=== PATIENT | female | born 1965 | race Caucasian/White ===

== ENCOUNTER 2019-06-01 11:59 | Inpatient (IN) ==
[2019-06-01] MEDS ORDERED: ONDANSETRON 4 MG/2 ML VIAL IV ONE (12:35)
[2019-06-01] MEDS ORDERED: ACETAMINOPHEN 325 MG TABLET PO ONE (12:35)
[2019-06-01] MEDS ORDERED: SODIUM CHLORIDE 0.9% 1,000 ML IV STA ×2 (12:35→12:45)
[2019-06-01] MEDS ORDERED: MORPHINE 4 MG/1 ML VIAL IV ONE (12:35)
[2019-06-01] MEDS ORDERED: diphenhydrAMINE 50 MG/1 ML VIAL IV STA (12:38)
[2019-06-01] MEDS ORDERED: PANTOPRAZOLE 40 MG VIAL IV STA (12:38)
[2019-06-01] MEDS ORDERED: ACETAMINOPHEN 650 MG SUPP RECTAL ONE (12:45)
[2019-06-01] MEDS ORDERED: ACETAMINOPHEN 650 MG SUPP RECTAL STA (12:45)
[2019-06-01 12:54] LABS: Eosinophils % 2.7 % (0.00-10.9); Hematocrit 44.8 VOL% (35.7-47.0); Hemoglobin 14.7 GM/DL (12.0-16.0); Immature Granulocytes % 2.7 %; Immature Granulocytes Absolute 0.01 #; Lymphocytes # 0.3 10*3/uL (1.4-4.0); Lymphocytes % 86.5 % (21.3-54.2); Mean Corpuscular HGB Conc 32.8 GM/DL (32-36); Mean Corpuscular Volume 85.5 FL (87-102); Mean Platelet Volume 10.7 FL (9.6-12.0); Monocytes % 2.7 % (1.7-12.7); Neutrophils % 5.4 % (38.7-73.9); Platelet Count 69 T/CUMM (130-400); Red Blood Count 5.24 MC/CUMM (3.8-5.5); Red Cell Distribution Width 16.7 % (9.3-17.3)
[2019-06-01 13:03] LABS: White Blood Count 0.4 T/CUMM (4-12)
[2019-06-01] MEDS ORDERED: CEFEPIME 1,000 MG in SODIUM CHLORIDE 0.9% 100 ML IV STA (13:18)
[2019-06-01] MEDS ORDERED: VANCOMYCIN INJ 1,000 MG in SODIUM CHLORIDE 0.9% 250 ML IV STA (13:18)
[2019-06-01 13:23] LABS: Alanine Aminotransferase 95 U/L (13-56); Albumin 2.3 G/DL (3.4-5.0); Alkaline Phosphatase 375 U/L (45-117); Aspartate Amino Transferase 201 U/L (0-37); Blood Urea Nitrogen 24 MG/DL (7-18); Calcium 7.6 MG/DL (8.5-10.1); Estimated Glom Filtration Rate 62 ML/MIN; Glucose 188 MG/DL (74-106); Osmolality,Calculated 278.1 MOS/KG (273-304); Troponin I < 0.015 NG/ML (0.00-0.045)
[2019-06-01] MEDS ORDERED: SODIUM CHLORIDE 0.9% 500 ML IV STA (13:40)
[2019-06-01 13:56] LABS: Apearance,Urine CLEAR (Clear); Bacteria,Urine Occasional /HPF (Few); Bilirubin,Urine Small mg/dL (Negative); Blood, Urine Small mg/dL (Negative); Glucose,Urine (UA) 50 mg/dL (Negative); Ketones,Urine Negative (Negative); Mucus,Urine Occasional /LPF (Occasional); Nitrite,Urine Negative (Negative); Protein,Urine 30 MG/DL; RBC,Urine 12 /HPF (0-4); Urine Color Amber (Yellow); Urine Specific Gravity 1.025 (1.001-1.035); WBC,Urine 2 /HPF (0-6)
[2019-06-01 14:09] LABS: Eosinophils 4 % (0-10); Hypochromasia 1+; Lymphocytes 87 % (20-55); Microcytosis 1+; Segmented Neutrophils 9 % (50-85); Total Cells Counted 100
[2019-06-01 14:10] LABS: Platelet Estimate Decreased; Reactive Lymphocytes Slight
[2019-06-01] MEDS: SODIUM CHLORIDE 0.9% 1,000 ML IV SCH (16:05)
[2019-06-01] MEDS: MYLANTA/LIDO VISC 2:1 300 ML BOTTLE SWISH/SWAL SCH ×2 (16:49→21:57)
[2019-06-01] MEDS: NYSTATIN 500,000 UNIT/5 ML UDCUP SWISH/SWAL SCH ×2 (16:52→21:47)
[2019-06-01] MEDS: FILGRASTIM-SNDZ 480 MCG/0.8 ML SYRINGE SUBCUT SCH (16:52)
[2019-06-01] MEDS: ALBUTEROL/IPRATROPIUM 3 ML NEB RESP TX SCH (20:06)
[2019-06-01] MEDS: ONDANSETRON 4 MG/2 ML VIAL IV PRN (20:56)
[2019-06-01] MEDS: ZOLPIDEM 5 MG TABLET PO SCH (21:47)
[2019-06-01] MEDS: ENOXAPARIN 40 MG/0.4 ML SYRINGE SUBCUT SCH (21:47)
[2019-06-01] MEDS: ACETAMINOPHEN 325 MG TABLET PO PRN (21:47)
[2019-06-01] MEDS: CEFEPIME 1,000 MG in SODIUM CHLORIDE 0.9% 100 ML IV SCH (22:26)
[2019-06-02] MEDS: ONDANSETRON 4 MG/2 ML VIAL IV PRN ×3 (00:45→20:28)
[2019-06-02] MEDS: VANCOMYCIN INJ 1,000 MG in SODIUM CHLORIDE 0.9% 250 ML IV SCH ×2 (00:49→14:42)
[2019-06-02] MEDS: SODIUM CHLORIDE 0.9% 1,000 ML IV SCH ×2 (00:50→12:06)
[2019-06-02] MEDS: ALBUTEROL/IPRATROPIUM 3 ML NEB RESP TX SCH ×4 (01:05→20:21)
[2019-06-02] MEDS: CEFEPIME 1,000 MG in SODIUM CHLORIDE 0.9% 100 ML IV SCH ×2 (04:59→12:06)
[2019-06-02 06:13] LABS: Eosinophils % 4.5 % (0.00-10.9); Hematocrit 35.8 VOL% (35.7-47.0); Hemoglobin 11.9 GM/DL (12.0-16.0); Lymphocytes # 0.2 10*3/uL (1.4-4.0); Lymphocytes % 86.4 % (21.3-54.2); Mean Corpuscular HGB Conc 33.2 GM/DL (32-36); Mean Corpuscular Volume 84.8 FL (87-102); Mean Platelet Volume 10.9 FL (9.6-12.0); Monocytes % 4.5 % (1.7-12.7); Neutrophils % 4.6 % (38.7-73.9); Red Blood Count 4.22 MC/CUMM (3.8-5.5); Red Cell Distribution Width 16.7 % (9.3-17.3)
[2019-06-02 06:17] LABS: White Blood Count 0.2 T/CUMM (4-12)
[2019-06-02 06:18] LABS: Platelet Count 40 T/CUMM (130-400)
[2019-06-02 06:38] LABS: Albumin 1.9 G/DL (3.4-5.0); Bilirubin,Total 3.7 MG/DL (0.2-1.0); Calcium 6.8 MG/DL (8.5-10.1); Osmolality,Calculated 282.5 MOS/KG (273-304); Total Protein 5.3 G/DL (6.4-8.3)
[2019-06-02 07:33] LABS: Lymphocytes 100 % (20-55); Microcytosis 1+; Ovalocytes Slight; Platelet Estimate Decreased; Total Cells Counted 100
[2019-06-02] MEDS: MYLANTA/LIDO VISC 2:1 300 ML BOTTLE SWISH/SWAL SCH ×4 (09:57→21:58)
[2019-06-02] MEDS: FILGRASTIM-SNDZ 480 MCG/0.8 ML SYRINGE SUBCUT SCH (09:57)
[2019-06-02] MEDS: NYSTATIN 500,000 UNIT/5 ML UDCUP SWISH/SWAL SCH ×4 (09:57→21:58)
[2019-06-02] MEDS: LACTATED RINGERS 1,000 ML IV SCH ×2 (09:58→20:26)
[2019-06-02] MEDS ORDERED: chlorproMAZINE 25 MG TABLET PO PRN (10:18)
[2019-06-02] MEDS ORDERED: traMADol 50 MG TABLET PO PRN (10:18)
[2019-06-02] MEDS ORDERED: chlorproMAZINE INJ 25 MG in SODIUM CHLORIDE 0.9% 100 ML IV PRN (10:18)
[2019-06-02] MEDS ORDERED: MYLANTA/LIDO VISC 2:1 300 ML BOTTLE SWISH/SPIT PRN (10:18)
[2019-06-02] MEDS ORDERED: guaiFENesin 200 MG/10 ML UDCUP PO PRN (10:18)
[2019-06-02] MEDS ORDERED: MAGNESIUM HYDROXIDE SUSP 30 ML UDCUP PO PRN (10:18)
[2019-06-02] MEDS ORDERED: MYLANTA/LIDO VISC 2:1 300 ML BOTTLE SWISH/SWAL PRN (10:18)
[2019-06-02] MEDS ORDERED: BENZTROPINE 2 MG/2 ML AMP IV PRN (10:18)
[2019-06-02] MEDS ORDERED: LACTULOSE 20 GM/30 ML UDCUP PO PRN (10:18)
[2019-06-02] MEDS ORDERED: chlorproMAZINE INJ 50 MG in SODIUM CHLORIDE 0.9% 100 ML IV PRN (10:18)
[2019-06-02] MEDS ORDERED: ALUMINUM/MAGNES/SIMETH MAX STR 30 ML UDCUP PO PRN (10:18)
[2019-06-02] MEDS: PROMETHAZINE INJ 25 MG in SODIUM CHLORIDE 0.9% 50 ML IV PRN (11:45)
[2019-06-02] MEDS ORDERED: CHOLESTYRAMINE 4 GM PACK PO SCH (11:57)
[2019-06-02] MEDS: LOPERAMIDE 2 MG CAPSULE PO PRN ×2 (12:47→20:27)
[2019-06-02] MEDS: MEROPENEM 500 MG in SODIUM CHLORIDE 0.9% 100 ML IV SCH ×3 (13:42→23:30)
[2019-06-02] MEDS: ACETAMINOPHEN 325 MG TABLET PO PRN ×2 (14:39→20:34)
[2019-06-02] MEDS ORDERED: PROMETHAZINE 25 MG/1 ML VIAL ONE (19:28)
[2019-06-02] MEDS: PROMETHAZINE 25 MG/1 ML VIAL IV PRN (19:36)
[2019-06-02] MEDS: ZOLPIDEM 5 MG TABLET PO SCH (20:27)
[2019-06-02] MEDS: ENOXAPARIN 40 MG/0.4 ML SYRINGE SUBCUT SCH (20:35)
[2019-06-02] MEDS: ALPRAZolam 0.25 MG TABLET PO PRN (22:21)
[2019-06-03] MEDS: PROMETHAZINE 25 MG/1 ML VIAL IV PRN ×2 (00:09→05:17)
[2019-06-03] MEDS: VANCOMYCIN INJ 1,000 MG in SODIUM CHLORIDE 0.9% 250 ML IV SCH ×2 (00:13→15:57)
[2019-06-03] MEDS: ALBUTEROL/IPRATROPIUM 3 ML NEB RESP TX SCH ×4 (00:55→20:38)
[2019-06-03] MEDS: ACETAMINOPHEN 325 MG TABLET PO PRN ×2 (01:34→05:16)
[2019-06-03] MEDS: LACTATED RINGERS 1,000 ML IV SCH ×2 (01:38→08:58)
[2019-06-03 03:57] LABS: Eosinophils % 3.1 % (0.00-10.9); Hematocrit 31.4 VOL% (35.7-47.0); Hemoglobin 10.9 GM/DL (12.0-16.0); Lymphocytes # 0.3 10*3/uL (1.4-4.0); Lymphocytes % 90.6 % (21.3-54.2); Mean Corpuscular HGB Conc 34.7 GM/DL (32-36); Mean Platelet Volume 10.6 FL (9.6-12.0); Monocytes % 3.1 % (1.7-12.7); Neutrophils % 3.2 % (38.7-73.9); Red Blood Count 3.83 MC/CUMM (3.8-5.5); Red Cell Distribution Width 16.4 % (9.3-17.3)
[2019-06-03 04:12] LABS: Platelet Count 29 T/CUMM (130-400)
[2019-06-03 04:13] LABS: White Blood Count 0.3 T/CUMM (4-12)
[2019-06-03 04:16] LABS: Hypochromasia 1+; Lymphocytes 100 % (20-55); Platelet Estimate Decreased; Total Cells Counted 100
[2019-06-03 04:17] LABS: Atypical Lymphocytes Few; Microcytosis 1+
[2019-06-03 04:29] LABS: Albumin 1.6 G/DL (3.4-5.0); Bilirubin,Total 5.2 MG/DL (0.2-1.0); Osmolality,Calculated 279.4 MOS/KG (273-304); Total Protein 4.9 G/DL (6.4-8.3)
[2019-06-03] MEDS: MEROPENEM 500 MG in SODIUM CHLORIDE 0.9% 100 ML IV SCH ×4 (05:16→21:33)
[2019-06-03] MEDS: LOPERAMIDE 2 MG CAPSULE PO PRN (05:17)
[2019-06-03] MEDS ORDERED: MYLANTA/LIDO VISC/DIPH 300 ML BOTTLE SWISH/SPIT PRN (08:34)
[2019-06-03] MEDS ORDERED: MORPHINE 4 MG/1 ML VIAL IV PRN (08:55)
[2019-06-03] MEDS: NYSTATIN 500,000 UNIT/5 ML UDCUP SWISH/SWAL SCH (09:03)
[2019-06-03] MEDS: PANTOPRAZOLE 40 MG VIAL IV SCH (09:46)
[2019-06-03] MEDS: MORPHINE 4 MG/1 ML VIAL IV PRN (09:46)
[2019-06-03] MEDS: FILGRASTIM-SNDZ 480 MCG/0.8 ML SYRINGE SUBCUT SCH (09:46)
[2019-06-03 09:48] LABS: INR 1.3; PT Patient Result 13.9 SECS (9.6-12.2)
[2019-06-03] MEDS: PROMETHAZINE INJ 25 MG in SODIUM CHLORIDE 0.9% 50 ML IV PRN ×2 (09:48→20:14)
[2019-06-03] MEDS: MYLANTA/LIDO VISC 2:1 300 ML BOTTLE SWISH/SWAL SCH ×4 (09:50→22:15)
[2019-06-03] MEDS: SODIUM CHLORIDE 0.45% 1,000 ML IV SCH ×2 (09:50→21:32)
[2019-06-03 09:56] LABS: Partial Thromboplastin Time 43.9 SECS (20.8-36.0)
[2019-06-03] MEDS: AZTREONAM 2,000 MG in SYRINGE 1 EACH IV SCH ×3 (10:53→21:22)
[2019-06-03] MEDS ORDERED: POTASSIUM CHLORIDE 20 MEQ TABLET PO PRN (10:59)
[2019-06-03] MEDS ORDERED: POTASSIUM CHLORIDE RIDER 20 MEQ in PREMIX 1 EACH IV PRN (13:29)
[2019-06-03] MEDS: ACETAMINOPHEN 650 MG SUPP RECTAL PRN (16:02)
[2019-06-03] MEDS: POTASSIUM CHLORIDE RIDER 20 MEQ in PREMIX 1 EACH IV PRN (17:15)
[2019-06-03 17:35] LABS: Hematocrit 33.1 VOL% (35.7-47.0); Hemoglobin 11.2 GM/DL (12.0-16.0); Lymphocytes # 0.2 10*3/uL (1.4-4.0); Lymphocytes % 72.7 % (21.3-54.2); Mean Corpuscular HGB Conc 33.8 GM/DL (32-36); Mean Corpuscular Volume 83.4 FL (87-102); Monocytes % 21.2 % (1.7-12.7); Neutrophils % 3.1 % (38.7-73.9); Red Blood Count 3.97 MC/CUMM (3.8-5.5); Red Cell Distribution Width 16.5 % (9.3-17.3)
[2019-06-03 17:38] LABS: White Blood Count 0.3 T/CUMM (4-12)
[2019-06-03 17:39] LABS: Platelet Count 32 T/CUMM (130-400)
[2019-06-03 18:57] LABS: Acanthocytes 1+; Anisocytosis 2+; Hypochromasia 1+; Ovalocytes Slight
[2019-06-03] MEDS: ZOLPIDEM 5 MG TABLET PO SCH (22:15)
[2019-06-04] MEDS: ALBUTEROL/IPRATROPIUM 3 ML NEB RESP TX SCH ×4 (00:57→19:39)
[2019-06-04] MEDS: VANCOMYCIN INJ 1,000 MG in SODIUM CHLORIDE 0.9% 250 ML IV SCH (01:17)
[2019-06-04] MEDS: ACETAMINOPHEN 650 MG SUPP RECTAL PRN (01:23)
[2019-06-04] MEDS: MEROPENEM 500 MG in SODIUM CHLORIDE 0.9% 100 ML IV SCH ×4 (03:08→20:42)
[2019-06-04] MEDS: AZTREONAM 2,000 MG in SYRINGE 1 EACH IV SCH ×2 (03:40→10:15)
[2019-06-04 05:16] LABS: Hematocrit 32.5 VOL% (35.7-47.0); Hemoglobin 10.8 GM/DL (12.0-16.0); Immature Granulocytes % 3.9 %; Immature Granulocytes Absolute 0.02 #; Lymphocytes # 0.3 10*3/uL (1.4-4.0); Lymphocytes % 62.7 % (21.3-54.2); Mean Corpuscular HGB Conc 33.2 GM/DL (32-36); Mean Corpuscular Volume 83.3 FL (87-102); Mean Platelet Volume 11.2 FL (9.6-12.0); Monocytes % 29.4 % (1.7-12.7); Red Cell Distribution Width 16.8 % (9.3-17.3)
[2019-06-04 05:38] LABS: Albumin 1.5 G/DL (3.4-5.0); Calcium 7.4 MG/DL (8.5-10.1); Osmolality,Calculated 280.4 MOS/KG (273-304); Total Protein 5.1 G/DL (6.4-8.3)
[2019-06-04 05:47] LABS: Platelet Count 34 T/CUMM (130-400); White Blood Count 0.5 T/CUMM (4-12)
[2019-06-04 05:55] LABS: Hypochromasia 1+; Lymphocytes 70 % (20-55); Platelet Estimate Decreased; Total Cells Counted 100
[2019-06-04] MEDS: SODIUM CHLORIDE 0.45% 1,000 ML IV SCH ×3 (06:42→20:41)
[2019-06-04] MEDS: POTASSIUM CHLORIDE RIDER 20 MEQ in PREMIX 1 EACH IV PRN ×2 (07:46→17:06)
[2019-06-04] MEDS ORDERED: LACTATED RINGERS 1,000 ML IV SCH (08:00)
[2019-06-04] MEDS: PROMETHAZINE INJ 25 MG in SODIUM CHLORIDE 0.9% 50 ML IV PRN (08:08)
[2019-06-04] MEDS: FILGRASTIM-SNDZ 480 MCG/0.8 ML SYRINGE SUBCUT SCH (08:10)
[2019-06-04] MEDS: PANTOPRAZOLE 40 MG VIAL IV SCH (08:10)
[2019-06-04] MEDS: MYLANTA/LIDO VISC 2:1 300 ML BOTTLE SWISH/SWAL SCH ×4 (08:33→20:46)
[2019-06-04] MEDS ORDERED: TOBRAMYCIN INJ 320 MG in SODIUM CHLORIDE 0.9% 100 ML IV ONE (10:30)
[2019-06-04] MEDS: FLUCONAZOLE INJ 200 MG in PREMIX 1 EACH IV SCH (10:33)
[2019-06-04] MEDS ORDERED: ACETAMINOPHEN 325 MG/10.15 ML UDCUP PO PRN (16:16)
[2019-06-04] MEDS: IBUPROFEN 100 MG/5 ML UDCUP PO PRN (16:59)
[2019-06-04] MEDS: ALPRAZolam 0.25 MG TABLET PO PRN (20:42)
[2019-06-04] MEDS: ZOLPIDEM 5 MG TABLET PO SCH (20:42)
[2019-06-05] MEDS: ALBUTEROL/IPRATROPIUM 3 ML NEB RESP TX SCH ×5 (00:07→21:20)
[2019-06-05] MEDS: SODIUM CHLORIDE 0.45% 1,000 ML IV SCH ×2 (00:48→09:50)
[2019-06-05] MEDS: MEROPENEM 500 MG in SODIUM CHLORIDE 0.9% 100 ML IV SCH ×4 (01:39→20:06)
[2019-06-05] MEDS: LOPERAMIDE 2 MG CAPSULE PO PRN (01:43)
[2019-06-05 05:45] LABS: Basophils % 1.6 % (0.0-0.8); Eosinophils % 0.5 % (0.00-10.9); Hematocrit 33.3 VOL% (35.7-47.0); Hemoglobin 11.1 GM/DL (12.0-16.0); Immature Granulocytes % 10.9 %; Immature Granulocytes Absolute 0.21 #; Lymphocytes # 0.7 10*3/uL (1.4-4.0); Lymphocytes % 36.5 % (21.3-54.2); Mean Corpuscular HGB Conc 33.3 GM/DL (32-36); Mean Corpuscular Volume 83.3 FL (87-102); Mean Platelet Volume 12.1 FL (9.6-12.0); NRBC # 0.08 10*3/uL; Neutrophils % 37.5 % (38.7-73.9); Platelet Count 43 T/CUMM (130-400); Red Cell Distribution Width 17.2 % (9.3-17.3); White Blood Count 1.9 T/CUMM (4-12)
[2019-06-05 06:08] LABS: Albumin 1.3 G/DL (3.4-5.0); Bilirubin,Total 5.4 MG/DL (0.2-1.0); Calcium 7.4 MG/DL (8.5-10.1); Osmolality,Calculated 278.5 MOS/KG (273-304); Total Protein 4.8 G/DL (6.4-8.3)
[2019-06-05 06:16] LABS: Hypochromasia 1+; Lymphocytes 34 % (20-55); Metamyelocytes 4 %; Microcytosis 1+; Nucleated Red Blood Cells 2 (0-5); Platelet Estimate Decreased; Promyelocytes 2 %; Segmented Neutrophils 40 % (50-85); Total Cells Counted 100
[2019-06-05 06:17] LABS: Atypical Lymphocytes Few
[2019-06-05] MEDS: MYLANTA/LIDO VISC 2:1 300 ML BOTTLE SWISH/SWAL SCH ×4 (09:47→21:12)
[2019-06-05] MEDS: PANTOPRAZOLE 40 MG VIAL IV SCH ×2 (09:52→21:04)
[2019-06-05] MEDS: FILGRASTIM-SNDZ 480 MCG/0.8 ML SYRINGE SUBCUT SCH (09:53)
[2019-06-05] MEDS ORDERED: TOBRAMYCIN INJ 320 MG in SODIUM CHLORIDE 0.9% 100 ML IV ONE (10:00)
[2019-06-05] MEDS: FLUCONAZOLE INJ 200 MG in PREMIX 1 EACH IV SCH (11:16)
[2019-06-05] MEDS ORDERED: ALUM/MAG/SIMETH/LIDO VISC 1:1 30 ML BOTTLE PO ONE (11:51)
[2019-06-05] MEDS ORDERED: LIDOCAINE 4% CREAM 5 GM TUBE TOP PRN (11:59)
[2019-06-05] MEDS: ONDANSETRON 4 MG/2 ML VIAL IV PRN (12:30)
[2019-06-05] MEDS: PROMETHAZINE INJ 25 MG in SODIUM CHLORIDE 0.9% 50 ML IV PRN ×2 (12:45→19:58)
[2019-06-05] MEDS: POTASSIUM CHLORIDE RIDER 20 MEQ in PREMIX 1 EACH IV PRN (18:58)
[2019-06-05] MEDS: ZOLPIDEM 5 MG TABLET PO SCH (21:03)
[2019-06-06] MEDS: ONDANSETRON 4 MG/2 ML VIAL IV PRN (00:43)
[2019-06-06] MEDS: ALBUTEROL/IPRATROPIUM 3 ML NEB RESP TX SCH ×4 (00:55→19:26)
[2019-06-06] MEDS: SODIUM CHLORIDE 0.45% 1,000 ML IV SCH ×2 (02:50→21:09)
[2019-06-06] MEDS: MEROPENEM 500 MG in SODIUM CHLORIDE 0.9% 100 ML IV SCH ×4 (02:50→21:05)
[2019-06-06] MEDS: ACETAMINOPHEN 325 MG TABLET PO PRN (04:45)
[2019-06-06 05:12] LABS: Basophils % 0.1 % (0.0-0.8); Eosinophils % 0.4 % (0.00-10.9); Hematocrit 33.1 VOL% (35.7-47.0); Hemoglobin 11.2 GM/DL (12.0-16.0); Immature Granulocytes % 12.9 %; Immature Granulocytes Absolute 1.05 #; Lymphocytes # 1.2 10*3/uL (1.4-4.0); Lymphocytes % 14.7 % (21.3-54.2); Mean Corpuscular HGB Conc 33.8 GM/DL (32-36); Mean Corpuscular Volume 82.5 FL (87-102); Monocytes % 9.3 % (1.7-12.7); Neutrophils % 62.6 % (38.7-73.9); Red Blood Count 4.01 MC/CUMM (3.8-5.5); Red Cell Distribution Width 17.1 % (9.3-17.3); White Blood Count 8.2 T/CUMM (4-12)
[2019-06-06 05:24] LABS: Platelet Count 54 T/CUMM (130-400)
[2019-06-06 05:40] LABS: Band Neutrophils 1 % (0-10); Hypochromasia 1+; Lymphocytes 17 % (20-55); Metamyelocytes 2 %; Microcytosis 1+; Nucleated Red Blood Cells 9 (0-5); Promyelocytes 1 %; Segmented Neutrophils 68 % (50-85); Target Cells Slight; Total Cells Counted 100
[2019-06-06 05:41] LABS: Atypical Lymphocytes Few; Platelet Estimate Decreased
[2019-06-06 05:43] LABS: Albumin 1.4 G/DL (3.4-5.0); Bilirubin,Total 5.8 MG/DL (0.2-1.0); Calcium 7.8 MG/DL (8.5-10.1); Osmolality,Calculated 274.7 MOS/KG (273-304); Total Protein 4.8 G/DL (6.4-8.3)
[2019-06-06] MEDS: POTASSIUM CHLORIDE RIDER 20 MEQ in PREMIX 1 EACH IV PRN (06:47)
[2019-06-06] MEDS: MYLANTA/LIDO VISC 2:1 300 ML BOTTLE SWISH/SWAL SCH ×4 (08:08→22:44)
[2019-06-06] MEDS: PANTOPRAZOLE 40 MG VIAL IV SCH ×2 (09:14→22:44)
[2019-06-06] MEDS: POTASSIUM CHLORIDE RIDER 10 MEQ in PREMIX 1 EACH IV PRN (11:20)
[2019-06-06] MEDS: FLUCONAZOLE INJ 200 MG in PREMIX 1 EACH IV SCH (11:21)
[2019-06-06] MEDS: FILGRASTIM-SNDZ 480 MCG/0.8 ML SYRINGE SUBCUT SCH (11:23)
[2019-06-06] MEDS: IBUPROFEN 100 MG/5 ML UDCUP PO PRN (16:44)
[2019-06-06] MEDS: ZOLPIDEM 5 MG TABLET PO SCH (21:04)
[2019-06-07] MEDS: SODIUM CHLORIDE 0.45% 1,000 ML IV SCH (00:26)
[2019-06-07] MEDS: ALBUTEROL/IPRATROPIUM 3 ML NEB RESP TX SCH ×5 (01:56→20:03)
[2019-06-07] MEDS: MEROPENEM 500 MG in SODIUM CHLORIDE 0.9% 100 ML IV SCH ×3 (02:48→13:35)
[2019-06-07] MEDS: ALPRAZolam 0.25 MG TABLET PO PRN (03:10)
[2019-06-07] MEDS: ONDANSETRON 4 MG/2 ML VIAL IV PRN ×2 (03:18→13:35)
[2019-06-07 04:11] LABS: Basophils % 0.1 % (0.0-0.8); Eosinophils % 0.2 % (0.00-10.9); Hemoglobin 10.8 GM/DL (12.0-16.0); Immature Granulocytes % 15.8 %; Immature Granulocytes Absolute 1.52 #; Lymphocytes # 1.2 10*3/uL (1.4-4.0); Lymphocytes % 11.9 % (21.3-54.2); Mean Corpuscular HGB Conc 34.8 GM/DL (32-36); Mean Corpuscular Volume 80.5 FL (87-102); Mean Platelet Volume 11.9 FL (9.6-12.0); Monocytes % 10.1 % (1.7-12.7); NRBC # 0.68 10*3/uL; Neutrophils % 61.9 % (38.7-73.9); Platelet Count 45 T/CUMM (130-400); Red Blood Count 3.85 MC/CUMM (3.8-5.5); Red Cell Distribution Width 17.4 % (9.3-17.3); White Blood Count 9.6 T/CUMM (4-12)
[2019-06-07 04:27] LABS: Calcium 7.2 MG/DL (8.5-10.1); Osmolality,Calculated 276.5 MOS/KG (273-304)
[2019-06-07 04:46] LABS: Anisocytosis 1+; Band Neutrophils 1 % (0-10); Lymphocytes 14 % (20-55); Metamyelocytes 1 %; Myelocytes 2 %; Nucleated Red Blood Cells 5 (0-5); Segmented Neutrophils 71 % (50-85); Total Cells Counted 100
[2019-06-07 04:47] LABS: Atypical Lymphocytes Few; Macrocytosis 1+; Microcytosis 1+; Platelet Estimate Decreased; Polychromasia 1+; Smudge Cells Few
[2019-06-07] MEDS ORDERED: THROMBIN 5000 UNIT TOP ONE (10:00)
[2019-06-07] MEDS ORDERED: THROMBIN TOPICAL (RECOMBINANT) 5,000 UNIT VIAL TOP ONE (10:30)
[2019-06-07] MEDS: PANTOPRAZOLE 40 MG VIAL IV SCH ×2 (10:39→22:28)
[2019-06-07] MEDS: MYLANTA/LIDO VISC 2:1 300 ML BOTTLE SWISH/SWAL SCH ×4 (10:40→21:48)
[2019-06-07] MEDS: FLUCONAZOLE INJ 200 MG in PREMIX 1 EACH IV SCH (12:31)
[2019-06-07] MEDS ORDERED: LORazepam 2 MG/1 ML VIAL IV ONE (13:12)
[2019-06-07] MEDS ORDERED: LORazepam 2 MG/1 ML VIAL IV SCH (13:30)
[2019-06-07] MEDS ORDERED: LEVOFLOXACIN INJ 750 MG in PREMIX 1 EACH IV SCH (16:00)
[2019-06-07] MEDS ORDERED: ALBUMIN 25% 50 GM in PREMIX 1 EACH IV ONE (17:30)
[2019-06-07] MEDS ORDERED: FUROSEMIDE 40 MG/4 ML VIAL IV ONE (19:30)
[2019-06-07] MEDS: ZOLPIDEM 5 MG TABLET PO SCH (21:43)
[2019-06-07] MEDS: PROMETHAZINE INJ 25 MG in SODIUM CHLORIDE 0.9% 50 ML IV PRN (22:29)
[2019-06-07] MEDS: VANCOMYCIN INJ 1,250 MG in SODIUM CHLORIDE 0.9% 250 ML IV SCH (23:17)
[2019-06-07] MEDS: ACETAMINOPHEN 650 MG SUPP RECTAL PRN (23:18)
[2019-06-08] MEDS: SODIUM CHLORIDE 0.45% 1,000 ML IV SCH ×2 (00:29→10:58)
[2019-06-08] MEDS: MEROPENEM 500 MG in SODIUM CHLORIDE 0.9% 100 ML IV SCH ×4 (00:29→18:18)
[2019-06-08] MEDS: ALBUTEROL/IPRATROPIUM 3 ML NEB RESP TX SCH ×4 (01:30→19:32)
[2019-06-08] MEDS: ALPRAZolam 0.25 MG TABLET PO PRN (03:35)
[2019-06-08 05:31] LABS: Basophils % 0.1 % (0.0-0.8); Eosinophils % 0.1 % (0.00-10.9); Hematocrit 27.4 VOL% (35.7-47.0); Hemoglobin 9.6 GM/DL (12.0-16.0); Immature Granulocytes % 17.7 %; Immature Granulocytes Absolute 1.41 #; Lymphocytes # 1.3 10*3/uL (1.4-4.0); Lymphocytes % 16.9 % (21.3-54.2); Mean Corpuscular Volume 79.7 FL (87-102); Monocytes % 8.8 % (1.7-12.7); NRBC # 0.63 10*3/uL; Neutrophils % 56.4 % (38.7-73.9); Red Blood Count 3.44 MC/CUMM (3.8-5.5); Red Cell Distribution Width 17.2 % (9.3-17.3)
[2019-06-08 05:33] LABS: Platelet Count 34 T/CUMM (130-400)
[2019-06-08 06:09] LABS: Albumin 2.1 G/DL (3.4-5.0); Bilirubin,Total 6.9 MG/DL (0.2-1.0); Calcium 7.5 MG/DL (8.5-10.1); Osmolality,Calculated 275.7 MOS/KG (273-304); Total Protein 4.9 G/DL (6.4-8.3)
[2019-06-08 06:26] LABS: Band Neutrophils 16 % (0-10); Lymphocytes 19 % (20-55); Metamyelocytes 2 %; Myelocytes 3 %; Nucleated Red Blood Cells 8 (0-5); Platelet Estimate Decreased; Segmented Neutrophils 55 % (50-85); Total Cells Counted 100
[2019-06-08 06:27] LABS: Anisocytosis 1+; Poikilocytosis Slight; Smudge Cells 1+; Target Cells Few
[2019-06-08] MEDS: POTASSIUM CHLORIDE RIDER 10 MEQ in PREMIX 1 EACH IV PRN (06:29)
[2019-06-08] MEDS: PANTOPRAZOLE 40 MG VIAL IV SCH (10:58)
[2019-06-08] MEDS: MYLANTA/LIDO VISC 2:1 300 ML BOTTLE SWISH/SWAL SCH ×4 (10:58→21:51)
[2019-06-08] MEDS: FLUCONAZOLE INJ 200 MG in PREMIX 1 EACH IV SCH (11:12)
[2019-06-08 11:26] LABS: INR 1.8; PT Patient Result 19.3 SECS (9.6-12.2)
[2019-06-08 11:32] LABS: Partial Thromboplastin Time 40.8 SECS (20.8-36.0)
[2019-06-08] MEDS: VANCOMYCIN INJ 1,250 MG in SODIUM CHLORIDE 0.9% 250 ML IV SCH (12:00)
[2019-06-08] MEDS: MICAFUNGIN 100 MG in SODIUM CHLORIDE 0.9% 100 ML IV SCH (12:07)
[2019-06-08] MEDS ORDERED: SODIUM CHLORIDE 0.9% 1,000 ML IV PRN (12:11)
[2019-06-08] MEDS: LORazepam 2 MG/1 ML VIAL IV PRN (12:16)
[2019-06-08 12:38] LABS: Hepatitis B Core IgM Quant 0.15 Index; Hepatitis B Surface Ag Result Negative (Negative); Hepatitis C Virus Ab Quant < 0.02 Index; Hepatitis C Virus Ab Result Negative (Negative)
[2019-06-08] MEDS ORDERED: ALBUMIN 25% 25 GM in PREMIX 1 EACH IV ONE (14:48)
[2019-06-08] MEDS ORDERED: FUROSEMIDE 40 MG/4 ML VIAL IV ONE (15:00)
[2019-06-08] MEDS: MORPHINE 4 MG/1 ML VIAL IV PRN (15:16)
[2019-06-08] MEDS: ONDANSETRON 4 MG/2 ML VIAL IV PRN (15:21)
[2019-06-08] MEDS: POTASSIUM CHLORIDE RIDER 20 MEQ in PREMIX 1 EACH IV SCH ×2 (19:46→22:00)
[2019-06-08] MEDS ORDERED: THROMBIN TOPICAL (RECOMBINANT) 5,000 UNIT VIAL TOP ONE (20:30)
[2019-06-08] MEDS: ACETAMINOPHEN 650 MG SUPP RECTAL PRN (20:34)
[2019-06-08] MEDS: ZOLPIDEM 5 MG TABLET PO SCH (22:45)
[2019-06-09] MEDS: NYSTATIN POWDER 15 GM BOTTLE TOP SCH ×4 (00:02→20:25)
[2019-06-09] MEDS: LEVOFLOXACIN INJ 750 MG in PREMIX 1 EACH IV SCH ×2 (00:02→22:17)
[2019-06-09] MEDS: SODIUM CHLORIDE 0.45% 1,000 ML IV SCH ×2 (01:15→22:17)
[2019-06-09] MEDS: MEROPENEM 500 MG in SODIUM CHLORIDE 0.9% 100 ML IV SCH ×5 (01:30→23:51)
[2019-06-09] MEDS: TEMAZEPAM 7.5 MG CAPSULE PO PRN (01:30)
[2019-06-09] MEDS: VANCOMYCIN INJ 1,250 MG in SODIUM CHLORIDE 0.9% 250 ML IV SCH ×2 (01:31→13:25)
[2019-06-09 04:06] LABS: Basophils # 0.1 10*3/uL (0.0-0.2); Basophils % 1.2 % (0.0-0.8); Hemoglobin 9.2 GM/DL (12.0-16.0); Immature Granulocytes % 18.8 %; Immature Granulocytes Absolute 1.36 #; Lymphocytes # 1.5 10*3/uL (1.4-4.0); Lymphocytes % 21.2 % (21.3-54.2); Mean Corpuscular HGB Conc 32.9 GM/DL (32-36); Mean Corpuscular Volume 83.6 FL (87-102); Monocytes % 10.5 % (1.7-12.7); Neutrophils % 48.3 % (38.7-73.9); Red Blood Count 3.35 MC/CUMM (3.8-5.5); Red Cell Distribution Width 17.5 % (9.3-17.3); White Blood Count 7.2 T/CUMM (4-12)
[2019-06-09 04:10] LABS: Platelet Count 30 T/CUMM (130-400)
[2019-06-09] MEDS: ALPRAZolam 0.25 MG TABLET PO PRN (04:22)
[2019-06-09 04:27] LABS: Bilirubin,Total 7.9 MG/DL (0.2-1.0); Calcium 7.3 MG/DL (8.5-10.1); Osmolality,Calculated 274.7 MOS/KG (273-304); Total Protein 4.9 G/DL (6.4-8.3)
[2019-06-09] MEDS: ACETAMINOPHEN 650 MG SUPP RECTAL PRN ×2 (04:34→18:38)
[2019-06-09] MEDS: POTASSIUM CHLORIDE RIDER 20 MEQ in PREMIX 1 EACH IV PRN (05:32)
[2019-06-09 06:24] LABS: Band Neutrophils 14 % (0-10); Eosinophils 1 % (0-10); Lymphocytes 20 % (20-55); Metamyelocytes 4 %; Myelocytes 5 %; Nucleated Red Blood Cells 16 (0-5); Platelet Estimate Decreased; Promyelocytes 1 %; Segmented Neutrophils 50 % (50-85); Smudge Cells 1+; Total Cells Counted 100
[2019-06-09 06:25] LABS: Anisocytosis 1+; Atypical Lymphocytes Few
[2019-06-09 07:35] LABS: Apearance,Urine CLOUDY (Clear); Bacteria,Urine Moderate /HPF (Few); Bilirubin,Urine Negative (Negative); Blood, Urine Large mg/dL (Negative); Glucose,Urine (UA) 50 mg/dL (Negative); Ketones,Urine Negative (Negative); Mucus,Urine Few /LPF (Occasional); Nitrite,Urine Negative (Negative); Protein,Urine 30 MG/DL; RBC,Urine 63 /HPF (0-4); Urine Color Amber (Yellow); Urine Specific Gravity 1.019 (1.001-1.035); Urine Urobilinogen < 2.0 EU/DL (0.2-1.0); WBC,Urine 269 /HPF (0-6)
[2019-06-09] MEDS: MYLANTA/LIDO VISC 2:1 300 ML BOTTLE SWISH/SWAL SCH ×4 (07:35→20:28)
[2019-06-09] MEDS ORDERED: FUROSEMIDE 40 MG/4 ML VIAL IV ONE (10:33)
[2019-06-09] MEDS: PANTOPRAZOLE 40 MG VIAL IV SCH (12:37)
[2019-06-09] MEDS: MICAFUNGIN 100 MG in SODIUM CHLORIDE 0.9% 100 ML IV SCH (13:22)
[2019-06-09] MEDS ORDERED: THROMBIN 5000 UNIT TOP ONE (14:03)
[2019-06-09] MEDS: VANCOMYCIN INJ 1,500 MG in SODIUM CHLORIDE 0.9% 500 ML IV SCH (14:16)
[2019-06-09] MEDS ORDERED: THROMBIN TOPICAL (RECOMBINANT) 5,000 UNIT VIAL TOP ONE (14:30)
[2019-06-09] MEDS: ONDANSETRON 4 MG/2 ML VIAL IV PRN ×3 (15:59→22:10)
[2019-06-09] MEDS: MORPHINE 4 MG/1 ML VIAL IV PRN ×2 (18:58→22:12)
[2019-06-09] MEDS: ZOLPIDEM 5 MG TABLET PO SCH (20:28)
[2019-06-10] MEDS: VANCOMYCIN INJ 1,500 MG in SODIUM CHLORIDE 0.9% 500 ML IV SCH ×2 (03:35→16:21)
[2019-06-10 04:07] LABS: Basophils % 0.4 % (0.0-0.8); Hematocrit 27.7 VOL% (35.7-47.0); Hemoglobin 9.1 GM/DL (12.0-16.0); Immature Granulocytes % 16.4 %; Lymphocytes # 1.5 10*3/uL (1.4-4.0); Lymphocytes % 19.8 % (21.3-54.2); Mean Corpuscular HGB Conc 32.9 GM/DL (32-36); Mean Corpuscular Volume 84.5 FL (87-102); Mean Platelet Volume 12.6 FL (9.6-12.0); Monocytes % 10.8 % (1.7-12.7); NRBC # 0.67 10*3/uL; Neutrophils % 52.6 % (38.7-73.9); Platelet Count 56 T/CUMM (130-400); Red Blood Count 3.28 MC/CUMM (3.8-5.5); Red Cell Distribution Width 17.6 % (9.3-17.3); White Blood Count 7.3 T/CUMM (4-12)
[2019-06-10 04:20] LABS: Partial Thromboplastin Time 39.4 SECS (20.8-36.0)
[2019-06-10 04:34] LABS: Band Neutrophils 5 % (0-10); Lymphocytes 9 % (20-55); Myelocytes 1 %; Nucleated Red Blood Cells 14 (0-5); Segmented Neutrophils 74 % (50-85); Total Cells Counted 100
[2019-06-10 04:35] LABS: Hypochromasia 1+; Platelet Estimate Decreased
[2019-06-10 04:36] LABS: Atypical Lymphocytes Few
[2019-06-10 04:58] LABS: PT Patient Result 21.4 SECS (9.6-12.2)
[2019-06-10 05:14] LABS: Bilirubin,Total 9.2 MG/DL (0.2-1.0); Calcium 7.7 MG/DL (8.5-10.1); Osmolality,Calculated 268.1 MOS/KG (273-304); Total Protein 5.1 G/DL (6.4-8.3)
[2019-06-10] MEDS: MEROPENEM 500 MG in SODIUM CHLORIDE 0.9% 100 ML IV SCH ×3 (06:10→18:26)
[2019-06-10] MEDS ORDERED: MAGNESIUM SULF RIDER 4 GM in PREMIX 1 EACH IV PRN (07:59)
[2019-06-10] MEDS: PANTOPRAZOLE 40 MG VIAL IV SCH (09:17)
[2019-06-10] MEDS: MAGNESIUM SULF RIDER 2 GM in PREMIX 1 EACH IV PRN (09:17)
[2019-06-10] MEDS: MYLANTA/LIDO VISC 2:1 300 ML BOTTLE SWISH/SWAL SCH ×4 (09:18→20:16)
[2019-06-10] MEDS: NYSTATIN POWDER 15 GM BOTTLE TOP SCH ×3 (09:18→20:20)
[2019-06-10] MEDS ORDERED: SODIUM CHLORIDE 0.9% 1,000 ML IV PRN (09:23)
[2019-06-10] MEDS: MORPHINE 4 MG/1 ML VIAL IV PRN ×3 (11:23→22:34)
[2019-06-10] MEDS: ONDANSETRON 4 MG/2 ML VIAL IV PRN ×3 (11:24→22:30)
[2019-06-10] MEDS: MICAFUNGIN 100 MG in SODIUM CHLORIDE 0.9% 100 ML IV SCH (13:42)
[2019-06-10] MEDS: ZOLPIDEM 5 MG TABLET PO SCH (20:16)
[2019-06-10] MEDS: POTASSIUM CHLORIDE RIDER 20 MEQ in PREMIX 1 EACH IV PRN (20:19)
[2019-06-10] MEDS: POTASSIUM CHLORIDE RIDER 10 MEQ in PREMIX 1 EACH IV PRN (22:36)
[2019-06-10] MEDS: SODIUM CHLORIDE 0.45% 1,000 ML IV SCH (23:52)
[2019-06-10] MEDS: LEVOFLOXACIN INJ 750 MG in PREMIX 1 EACH IV SCH (23:52)
[2019-06-11] MEDS: MEROPENEM 500 MG in SODIUM CHLORIDE 0.9% 100 ML IV SCH ×4 (01:31→19:05)
[2019-06-11] MEDS: VANCOMYCIN INJ 1,500 MG in SODIUM CHLORIDE 0.9% 500 ML IV SCH ×2 (02:27→16:05)
[2019-06-11 05:54] LABS: INR 1.6; PT Patient Result 17.4 SECS (9.6-12.2)
[2019-06-11 06:00] LABS: Partial Thromboplastin Time 39.2 SECS (20.8-36.0)
[2019-06-11] MEDS: ACETAMINOPHEN 650 MG SUPP RECTAL PRN (06:25)
[2019-06-11] MEDS: ONDANSETRON 4 MG/2 ML VIAL IV PRN ×2 (06:53→16:17)
[2019-06-11] MEDS: MYLANTA/LIDO VISC 2:1 300 ML BOTTLE SWISH/SWAL SCH ×4 (07:30→20:27)
[2019-06-11] MEDS: PANTOPRAZOLE 40 MG VIAL IV SCH (09:11)
[2019-06-11 09:37] LABS: Albumin 1.9 G/DL (3.4-5.0); Calcium 7.9 MG/DL (8.5-10.1); Total Protein 4.9 G/DL (6.4-8.3)
[2019-06-11 09:48] LABS: Basophils % 0.4 % (0.0-0.8); Hematocrit 26.7 VOL% (35.7-47.0); Hemoglobin 8.8 GM/DL (12.0-16.0); Immature Granulocytes % 10.4 %; Immature Granulocytes Absolute 0.89 #; Lymphocytes # 1.3 10*3/uL (1.4-4.0); Lymphocytes % 15.6 % (21.3-54.2); Mean Platelet Volume 11.8 FL (9.6-12.0); Monocytes % 12.7 % (1.7-12.7); NRBC # 0.85 10*3/uL; Neutrophils % 60.9 % (38.7-73.9); Red Blood Count 3.18 MC/CUMM (3.8-5.5); Red Cell Distribution Width 17.5 % (9.3-17.3); White Blood Count 8.5 T/CUMM (4-12)
[2019-06-11 09:49] LABS: Platelet Count 55 T/CUMM (130-400)
[2019-06-11 10:10] LABS: Band Neutrophils 1 % (0-10); Eosinophils 1 % (0-10); Lymphocytes 11 % (20-55); Nucleated Red Blood Cells 13 (0-5); Platelet Estimate Decreased; Segmented Neutrophils 79 % (50-85); Total Cells Counted 100
[2019-06-11 10:11] LABS: Hypochromasia 1+
[2019-06-11 11:46] LABS: EBV Nuclear Ag Antibody Positive (Negative); EBV Virus IgG Ab Positive (Negative); EBV Virus IgM Ab Negative (Negative)
[2019-06-11] MEDS: NYSTATIN POWDER 15 GM BOTTLE TOP SCH ×3 (12:49→20:19)
[2019-06-11] MEDS: SILVER SULFADIAZINE 1% CREAM 25 GM TUBE TOP SCH ×2 (12:55→20:21)
[2019-06-11] MEDS: MICAFUNGIN 100 MG in SODIUM CHLORIDE 0.9% 100 ML IV SCH (13:51)
[2019-06-11] MEDS: LORazepam 2 MG/1 ML VIAL IV PRN (16:18)
[2019-06-11] MEDS: ALPRAZolam 0.25 MG TABLET PO PRN (18:47)
[2019-06-11] MEDS: ZOLPIDEM 5 MG TABLET PO SCH ×2 (20:19→21:48)
[2019-06-11] MEDS: LEVOFLOXACIN INJ 750 MG in PREMIX 1 EACH IV SCH (22:39)
[2019-06-12] MEDS: MEROPENEM 500 MG in SODIUM CHLORIDE 0.9% 100 ML IV SCH ×4 (00:24→20:44)
[2019-06-12] MEDS: VANCOMYCIN INJ 1,500 MG in SODIUM CHLORIDE 0.9% 500 ML IV SCH ×2 (02:47→18:36)
[2019-06-12 06:03] LABS: Basophils # 0.1 10*3/uL (0.0-0.2); Basophils % 1.3 % (0.0-0.8); Hematocrit 27.8 VOL% (35.7-47.0); Immature Granulocytes Absolute 0.94 #; Lymphocytes # 1.4 10*3/uL (1.4-4.0); Lymphocytes % 13.4 % (21.3-54.2); Mean Corpuscular HGB Conc 32.4 GM/DL (32-36); Mean Platelet Volume 11.9 FL (9.6-12.0); Monocytes % 10.9 % (1.7-12.7); NRBC # 1.19 10*3/uL; Neutrophils % 65.4 % (38.7-73.9); Platelet Count 77 T/CUMM (130-400); Red Blood Count 3.31 MC/CUMM (3.8-5.5); Red Cell Distribution Width 17.5 % (9.3-17.3); White Blood Count 10.5 T/CUMM (4-12)
[2019-06-12 06:24] LABS: Partial Thromboplastin Time 36.8 SECS (20.8-36.0)
[2019-06-12 06:25] LABS: Band Neutrophils 3 % (0-10); Eosinophils 1 % (0-10); Lymphocytes 12 % (20-55); Nucleated Red Blood Cells 13 (0-5); Segmented Neutrophils 78 % (50-85); Total Cells Counted 100
[2019-06-12 06:26] LABS: Atypical Lymphocytes Few; Hypochromasia 1+; Platelet Estimate Decreased
[2019-06-12 06:29] LABS: PT Patient Result 21.4 SECS (9.6-12.2)
[2019-06-12 06:31] LABS: Bilirubin,Direct 7.96 MG/DL (0.0-0.20); Bilirubin,Indirect 4.2 MG/DL (0.0-1.0)
[2019-06-12 06:32] LABS: Albumin 1.9 G/DL (3.4-5.0); Calcium 7.7 MG/DL (8.5-10.1); Osmolality,Calculated 276.5 MOS/KG (273-304)
[2019-06-12 06:33] LABS: Bilirubin,Total 12.2 MG/DL (0.2-1.0)
[2019-06-12 06:34] LABS: Bilirubin,Total 12.2 MG/DL (0.2-1.0)
[2019-06-12] MEDS: PANTOPRAZOLE 40 MG VIAL IV SCH (09:35)
[2019-06-12] MEDS: MYLANTA/LIDO VISC 2:1 300 ML BOTTLE SWISH/SWAL SCH ×4 (09:36→20:58)
[2019-06-12] MEDS: NYSTATIN POWDER 15 GM BOTTLE TOP SCH ×3 (09:36→20:58)
[2019-06-12] MEDS: SILVER SULFADIAZINE 1% CREAM 25 GM TUBE TOP SCH ×2 (09:52→20:58)
[2019-06-12] MEDS ORDERED: SODIUM CHLORIDE 0.9% 1,000 ML IV PRN (10:32)
[2019-06-12] MEDS ORDERED: FUROSEMIDE 40 MG/4 ML VIAL IV ONE ×2 (10:36→18:34)
[2019-06-12] MEDS: MICAFUNGIN 100 MG in SODIUM CHLORIDE 0.9% 100 ML IV SCH (12:52)
[2019-06-12] MEDS: SODIUM CHLORIDE 0.45% 1,000 ML IV SCH (12:53)
[2019-06-12] MEDS: MUPIROCIN 2% OINT 22 GM TUBE TOP SCH ×2 (18:35→20:58)
[2019-06-12] MEDS: ZOLPIDEM 5 MG TABLET PO SCH (20:42)
[2019-06-12 23:17] LABS: Apearance,Urine Slightly Hazy (Clear); Bacteria,Urine Occasional /HPF (Few); Blood, Urine Large mg/dL (Negative); Glucose,Urine (UA) Negative (Negative); Granular Casts,Urine 1 /LPF (0-1); Hyaline Casts,Urine 1 /LPF (0-3); Ketones,Urine 5 mg/dL (Negative); Mucus,Urine Occasional /LPF (Occasional); Nitrite,Urine Negative (Negative); Protein,Urine 30 MG/DL; RBC,Urine 306 /HPF (0-4); Urine Color Amber (Yellow); Urine Specific Gravity 1.016 (1.001-1.035); WBC,Urine 5 /HPF (0-6)
[2019-06-12 23:18] LABS: Bilirubin,Urine Small mg/dL (Negative)
[2019-06-12] MEDS: LEVOFLOXACIN INJ 750 MG in PREMIX 1 EACH IV SCH (23:30)
[2019-06-13] MEDS: VANCOMYCIN INJ 1,500 MG in SODIUM CHLORIDE 0.9% 500 ML IV SCH (03:25)
[2019-06-13] MEDS: MEROPENEM 500 MG in SODIUM CHLORIDE 0.9% 100 ML IV SCH (03:26)
[2019-06-13 04:57] LABS: Basophils # 0.1 10*3/uL (0.0-0.2); Hemoglobin 8.1 GM/DL (12.0-16.0); Immature Granulocytes % 7.3 %; Immature Granulocytes Absolute 0.71 #; Lymphocytes # 1.6 10*3/uL (1.4-4.0); Lymphocytes % 16.1 % (21.3-54.2); Mean Corpuscular HGB Conc 33.8 GM/DL (32-36); Mean Platelet Volume 10.5 FL (9.6-12.0); Monocytes % 12.9 % (1.7-12.7); NRBC # 1.25 10*3/uL; Neutrophils % 62.7 % (38.7-73.9); Red Blood Count 2.89 MC/CUMM (3.8-5.5); Red Cell Distribution Width 17.3 % (9.3-17.3); White Blood Count 9.7 T/CUMM (4-12)
[2019-06-13 05:00] LABS: Platelet Count 71 T/CUMM (130-400)
[2019-06-13 05:11] LABS: Albumin 1.9 G/DL (3.4-5.0); Calcium 7.9 MG/DL (8.5-10.1); Osmolality,Calculated 277.5 MOS/KG (273-304)
[2019-06-13 05:13] LABS: Bilirubin,Total 12.4 MG/DL (0.2-1.0)
[2019-06-13 05:22] LABS: INR 1.8; PT Patient Result 19.6 SECS (9.6-12.2); Partial Thromboplastin Time 37.1 SECS (20.8-36.0)
[2019-06-13 05:23] LABS: Anisocytosis 1+; Band Neutrophils 1 % (0-10); Hypochromasia 1+; Lymphocytes 15 % (20-55); Microcytosis 1+; Nucleated Red Blood Cells 12 (0-5); Polychromasia Few; Segmented Neutrophils 72 % (50-85); Total Cells Counted 100
[2019-06-13 05:24] LABS: Platelet Estimate Decreased; Target Cells Slight
[2019-06-13] MEDS ORDERED: LEVOTHYROXINE 125 MCG TABLET PO SCH (06:30)
[2019-06-13] MEDS: MUPIROCIN 2% OINT 22 GM TUBE TOP SCH ×3 (09:43→20:33)
[2019-06-13] MEDS: MYLANTA/LIDO VISC 2:1 300 ML BOTTLE SWISH/SWAL SCH ×2 (09:43→17:34)
[2019-06-13] MEDS: PANTOPRAZOLE 40 MG VIAL IV SCH (09:43)
[2019-06-13] MEDS: ONDANSETRON 4 MG/2 ML VIAL IV PRN (09:43)
[2019-06-13] MEDS: NYSTATIN POWDER 15 GM BOTTLE TOP SCH ×3 (09:43→20:33)
[2019-06-13] MEDS: SILVER SULFADIAZINE 1% CREAM 25 GM TUBE TOP SCH ×2 (09:44→20:33)
[2019-06-13] MEDS ORDERED: FUROSEMIDE 20 MG/2 ML VIAL IV ONE ×3 (14:00→23:30)
[2019-06-13] MEDS: MORPHINE 4 MG/1 ML VIAL IV PRN (14:53)
[2019-06-13] MEDS: MAGNESIUM SULF RIDER 2 GM in PREMIX 1 EACH IV PRN (15:02)
[2019-06-13] MEDS: POTASSIUM CHLORIDE RIDER 20 MEQ in PREMIX 1 EACH IV PRN ×2 (15:02→17:09)
[2019-06-13] MEDS: ACYCLOVIR INJ 350 MG in SODIUM CHLORIDE 0.9% 100 ML IV SCH ×2 (15:02→23:39)
[2019-06-13] MEDS: CHLORHEXIDINE 0.12% ORAL RINSE 60 ML BOTTLE SWISH/SPIT SCH ×2 (17:11→22:07)
[2019-06-13] MEDS: MICAFUNGIN 100 MG in SODIUM CHLORIDE 0.9% 100 ML IV SCH (17:36)
[2019-06-13] MEDS: ZOLPIDEM 5 MG TABLET PO SCH (22:20)
[2019-06-14 01:29] LABS: Hematocrit 32.6 VOL% (35.7-47.0); Hemoglobin 10.8 GM/DL (12.0-16.0)
[2019-06-14 04:41] LABS: Basophils # 0.1 10*3/uL (0.0-0.2); Basophils % 0.5 % (0.0-0.8); Hematocrit 31.2 VOL% (35.7-47.0); Hemoglobin 10.4 GM/DL (12.0-16.0); Immature Granulocytes % 5.4 %; Immature Granulocytes Absolute 0.64 #; Lymphocytes # 1.6 10*3/uL (1.4-4.0); Lymphocytes % 13.3 % (21.3-54.2); Mean Corpuscular HGB Conc 33.3 GM/DL (32-36); Mean Corpuscular Volume 82.1 FL (87-102); Mean Platelet Volume 11.1 FL (9.6-12.0); Monocytes % 14.8 % (1.7-12.7); NRBC # 1.64 10*3/uL; Platelet Count 78 T/CUMM (130-400); Red Cell Distribution Width 17.9 % (9.3-17.3)
[2019-06-14 04:51] LABS: INR 1.9; PT Patient Result 20.1 SECS (9.6-12.2); Partial Thromboplastin Time 36.1 SECS (20.8-36.0)
[2019-06-14] MEDS: MORPHINE 4 MG/1 ML VIAL IV PRN ×2 (04:57→13:47)
[2019-06-14 05:09] LABS: Calcium 7.8 MG/DL (8.5-10.1); Osmolality,Calculated 281.3 MOS/KG (273-304); Total Protein 5.1 G/DL (6.4-8.3)
[2019-06-14 05:12] LABS: Band Neutrophils 1 % (0-10); Hypochromasia Slight; Lymphocytes 16 % (20-55); Microcytosis Slight; Nucleated Red Blood Cells 23 (0-5); Platelet Estimate Decreased; Segmented Neutrophils 76 % (50-85); Total Cells Counted 100
[2019-06-14 06:15] LABS: Bilirubin,Total 14.3 MG/DL (0.2-1.0)
[2019-06-14] MEDS: SODIUM CHLORIDE 0.45% 1,000 ML IV SCH ×2 (06:32→13:13)
[2019-06-14] MEDS: CHLORHEXIDINE 0.12% ORAL RINSE 60 ML BOTTLE SWISH/SPIT SCH ×2 (08:55→21:44)
[2019-06-14] MEDS: PANTOPRAZOLE 40 MG VIAL IV SCH (08:56)
[2019-06-14] MEDS: MUPIROCIN 2% OINT 22 GM TUBE TOP SCH ×3 (08:56→21:36)
[2019-06-14] MEDS: LEVOTHYROXINE 125 MCG TABLET PO SCH ×2 (08:56→09:03)
[2019-06-14] MEDS: ACYCLOVIR INJ 350 MG in SODIUM CHLORIDE 0.9% 100 ML IV SCH ×3 (08:56→22:43)
[2019-06-14] MEDS: NYSTATIN POWDER 15 GM BOTTLE TOP SCH ×3 (08:56→21:36)
[2019-06-14] MEDS: SILVER SULFADIAZINE 1% CREAM 25 GM TUBE TOP SCH ×2 (08:57→21:37)
[2019-06-14] MEDS ORDERED: SODIUM CHLORIDE 0.9% 1,000 ML IV PRN (09:40)
[2019-06-14] MEDS ORDERED: POTASSIUM CHLORIDE RIDER 20 MEQ in PREMIX 1 EACH IV SCH (10:00)
[2019-06-14] MEDS ORDERED: POTASSIUM PHOSPHATE 30 MMOL in SODIUM CHLORIDE 0.9% 250 ML IV ONE (12:00)
[2019-06-14] MEDS: MICAFUNGIN 100 MG in SODIUM CHLORIDE 0.9% 100 ML IV SCH (13:10)
[2019-06-14] MEDS: LEVOTHYROXINE 100 MCG VIAL IV SCH (13:11)
[2019-06-14 13:46] LABS: Mitochondrial Antibody (M2) <0.1 U
[2019-06-14] MEDS: ONDANSETRON 4 MG/2 ML VIAL IV PRN (13:46)
[2019-06-14] MEDS ORDERED: LIDOCAINE 2% VISCOUS 100 ML BOTTLE ONE (14:21)
[2019-06-14 14:26] LABS: Smooth Muscle Antibody Negative (Negative)
[2019-06-14] MEDS: ZOLPIDEM 5 MG TABLET PO SCH (21:36)
[2019-06-14] MEDS: TEMAZEPAM 7.5 MG CAPSULE PO PRN (22:51)
[2019-06-15] MEDS: ONDANSETRON 4 MG/2 ML VIAL IV PRN ×2 (02:05→07:16)
[2019-06-15 07:08] LABS: Basophils % 0.4 % (0.0-0.8); Hematocrit 29.5 VOL% (35.7-47.0); Hemoglobin 9.9 GM/DL (12.0-16.0); Immature Granulocytes % 4.9 %; Immature Granulocytes Absolute 0.55 #; Lymphocytes # 1.8 10*3/uL (1.4-4.0); Lymphocytes % 16.2 % (21.3-54.2); Mean Corpuscular HGB Conc 33.6 GM/DL (32-36); Mean Corpuscular Volume 83.8 FL (87-102); Monocytes % 20.4 % (1.7-12.7); NRBC # 1.76 10*3/uL; Neutrophils % 58.1 % (38.7-73.9); Red Blood Count 3.52 MC/CUMM (3.8-5.5); Red Cell Distribution Width 19.3 % (9.3-17.3); White Blood Count 11.2 T/CUMM (4-12)
[2019-06-15 07:10] LABS: Platelet Count 79 T/CUMM (130-400)
[2019-06-15 07:15] LABS: INR 1.5; PT Patient Result 15.8 SECS (9.6-12.2); Partial Thromboplastin Time 34.1 SECS (20.8-36.0)
[2019-06-15] MEDS: MORPHINE 4 MG/1 ML VIAL IV PRN (07:16)
[2019-06-15] MEDS: ACYCLOVIR INJ 350 MG in SODIUM CHLORIDE 0.9% 100 ML IV SCH ×3 (07:16→23:10)
[2019-06-15] MEDS: LEVOTHYROXINE 100 MCG VIAL IV SCH (07:16)
[2019-06-15 07:43] LABS: Albumin 2.1 G/DL (3.4-5.0); Calcium 7.8 MG/DL (8.5-10.1); Osmolality,Calculated 281.4 MOS/KG (273-304); Osmolality,Calculated 282.4 MOS/KG (273-304); Prealbumin 7.1 MG/DL (20-40); Total Protein 4.8 G/DL (6.4-8.3)
[2019-06-15 08:09] LABS: Lymphocytes 20 % (20-55); Metamyelocytes 2 %; Nucleated Red Blood Cells 31 (0-5); Promyelocytes 1 %; Segmented Neutrophils 63 % (50-85); Total Cells Counted 100
[2019-06-15 08:10] LABS: Anisocytosis 1+; Hypochromasia 1+; Microcytosis 1+
[2019-06-15 08:11] LABS: Platelet Estimate Decreased; Polychromasia Slight
[2019-06-15 08:12] LABS: Atypical Lymphocytes Few
[2019-06-15] MEDS: SILVER SULFADIAZINE 1% CREAM 25 GM TUBE TOP SCH ×3 (09:50→23:14)
[2019-06-15] MEDS: PANTOPRAZOLE 40 MG VIAL IV SCH (09:51)
[2019-06-15] MEDS: POTASSIUM CHLORIDE RIDER 20 MEQ in PREMIX 1 EACH IV PRN ×3 (09:51→23:07)
[2019-06-15] MEDS: MUPIROCIN 2% OINT 22 GM TUBE TOP SCH ×3 (09:51→23:13)
[2019-06-15] MEDS: CHLORHEXIDINE 0.12% ORAL RINSE 60 ML BOTTLE SWISH/SPIT SCH ×2 (09:52→23:14)
[2019-06-15] MEDS: NYSTATIN POWDER 15 GM BOTTLE TOP SCH ×3 (09:52→23:13)
[2019-06-15] MEDS ORDERED: LORazepam 2 MG/1 ML VIAL IV PRN (10:49)
[2019-06-15] MEDS: LORazepam 2 MG/1 ML VIAL IV PRN (11:09)
[2019-06-15] MEDS ORDERED: ACETAMINOPHEN 325 MG/10.15 ML UDCUP PO PRN (11:39)
[2019-06-15] MEDS: MICAFUNGIN 100 MG in SODIUM CHLORIDE 0.9% 100 ML IV SCH (13:10)
[2019-06-15] MEDS: POTASSIUM CHLORIDE RIDER 10 MEQ in PREMIX 1 EACH IV PRN (17:45)
[2019-06-15 22:16] LABS: Herpes Source LIP
[2019-06-15] MEDS: PROMETHAZINE INJ 25 MG in SODIUM CHLORIDE 0.9% 50 ML IV PRN (22:36)
[2019-06-16] MEDS: ZOLPIDEM 5 MG TABLET PO SCH ×2 (00:20→22:30)
[2019-06-16] MEDS: MORPHINE 4 MG/1 ML VIAL IV PRN ×6 (01:12→22:33)
[2019-06-16] MEDS: POTASSIUM CHLORIDE RIDER 10 MEQ in PREMIX 1 EACH IV PRN ×2 (01:12→02:57)
[2019-06-16] MEDS: PROMETHAZINE INJ 25 MG in SODIUM CHLORIDE 0.9% 50 ML IV PRN (02:30)
[2019-06-16] MEDS: LORazepam 2 MG/1 ML VIAL IV PRN ×3 (04:10→22:37)
[2019-06-16] MEDS: ONDANSETRON 4 MG/2 ML VIAL IV PRN ×3 (05:17→22:24)
[2019-06-16] MEDS: ACYCLOVIR INJ 350 MG in SODIUM CHLORIDE 0.9% 100 ML IV SCH ×3 (06:10→22:47)
[2019-06-16] MEDS: LEVOTHYROXINE 100 MCG VIAL IV SCH (06:13)
[2019-06-16 07:23] LABS: Basophils # 0.1 10*3/uL (0.0-0.2); Basophils % 1.2 % (0.0-0.8); Hemoglobin 10.7 GM/DL (12.0-16.0); Immature Granulocytes % 3.9 %; Immature Granulocytes Absolute 0.46 #; Lymphocytes # 1.9 10*3/uL (1.4-4.0); Lymphocytes % 16.2 % (21.3-54.2); Mean Corpuscular HGB Conc 33.4 GM/DL (32-36); Mean Corpuscular Volume 85.3 FL (87-102); Mean Platelet Volume 11.4 FL (9.6-12.0); Monocytes % 19.8 % (1.7-12.7); NRBC # 1.42 10*3/uL; Neutrophils % 58.9 % (38.7-73.9); Red Blood Count 3.75 MC/CUMM (3.8-5.5); Red Cell Distribution Width 20.7 % (9.3-17.3); White Blood Count 11.8 T/CUMM (4-12)
[2019-06-16 07:27] LABS: INR 1.5; PT Patient Result 16.1 SECS (9.6-12.2); Partial Thromboplastin Time 33.9 SECS (20.8-36.0)
[2019-06-16 07:38] LABS: Albumin 2.1 G/DL (3.4-5.0); Calcium 7.9 MG/DL (8.5-10.1); Osmolality,Calculated 281.4 MOS/KG (273-304); Total Protein 5.5 G/DL (6.4-8.3)
[2019-06-16 07:40] LABS: Platelet Count 94 T/CUMM (130-400)
[2019-06-16 07:42] LABS: Bilirubin,Total 19.5 MG/DL (0.2-1.0)
[2019-06-16 08:57] LABS: Anisocytosis 2+; Band Neutrophils 6 % (0-10); Lymphocytes 11 % (20-55); Macrocytosis 2+; Metamyelocytes 5 %; Myelocytes 3 %; Nucleated Red Blood Cells 17 (0-5); Platelet Estimate Decreased; Segmented Neutrophils 59 % (50-85); Total Cells Counted 100
[2019-06-16 09:06] LABS: Basophilic Stippling Few
[2019-06-16 09:07] LABS: Atypical Lymphocytes Few; Reactive Lymphocytes Few
[2019-06-16] MEDS: NYSTATIN POWDER 15 GM BOTTLE TOP SCH ×3 (10:29→22:48)
[2019-06-16] MEDS: MUPIROCIN 2% OINT 22 GM TUBE TOP SCH ×3 (10:29→22:48)
[2019-06-16] MEDS: PANTOPRAZOLE 40 MG VIAL IV SCH (10:29)
[2019-06-16] MEDS: SILVER SULFADIAZINE 1% CREAM 25 GM TUBE TOP SCH ×2 (10:29→22:48)
[2019-06-16] MEDS: CHLORHEXIDINE 0.12% ORAL RINSE 60 ML BOTTLE SWISH/SPIT SCH ×2 (10:30→22:48)
[2019-06-16] MEDS: SODIUM CHLORIDE 0.45% 1,000 ML IV SCH ×2 (10:30→10:31)
[2019-06-16] MEDS: MICAFUNGIN 100 MG in SODIUM CHLORIDE 0.9% 100 ML IV SCH (12:50)
[2019-06-17] MEDS: LORazepam 2 MG/1 ML VIAL IV PRN (02:23)
[2019-06-17] MEDS: MORPHINE 4 MG/1 ML VIAL IV PRN (02:25)
[2019-06-17] MEDS: ALPRAZolam 0.25 MG TABLET PO PRN ×2 (06:53→16:32)
[2019-06-17] MEDS: SODIUM CHLORIDE 0.45% 1,000 ML IV SCH ×3 (08:03→23:09)
[2019-06-17] MEDS: ACYCLOVIR INJ 350 MG in SODIUM CHLORIDE 0.9% 100 ML IV SCH (09:38)
[2019-06-17 09:39] LABS: Basophils # 0.1 10*3/uL (0.0-0.2); Basophils % 0.9 % (0.0-0.8); Hematocrit 29.9 VOL% (35.7-47.0); Hemoglobin 9.8 GM/DL (12.0-16.0); Immature Granulocytes % 3.9 %; Immature Granulocytes Absolute 0.38 #; Lymphocytes # 1.5 10*3/uL (1.4-4.0); Lymphocytes % 15.8 % (21.3-54.2); Mean Corpuscular HGB Conc 32.8 GM/DL (32-36); Mean Corpuscular Volume 85.9 FL (87-102); Mean Platelet Volume 10.9 FL (9.6-12.0); Monocytes % 23.1 % (1.7-12.7); NRBC # 1.01 10*3/uL; Neutrophils % 56.3 % (38.7-73.9); Red Blood Count 3.48 MC/CUMM (3.8-5.5); Red Cell Distribution Width 20.8 % (9.3-17.3); White Blood Count 9.6 T/CUMM (4-12)
[2019-06-17] MEDS: LEVOTHYROXINE 100 MCG VIAL IV SCH (09:40)
[2019-06-17] MEDS: PANTOPRAZOLE 40 MG VIAL IV SCH (09:40)
[2019-06-17 09:48] LABS: Platelet Count 83 T/CUMM (130-400)
[2019-06-17] MEDS: NYSTATIN POWDER 15 GM BOTTLE TOP SCH ×3 (09:51→23:11)
[2019-06-17 09:53] LABS: Albumin 1.8 G/DL (3.4-5.0); Osmolality,Calculated 288.7 MOS/KG (273-304)
[2019-06-17 09:55] LABS: Prealbumin 5.5 MG/DL (20-40)
[2019-06-17 10:13] LABS: Lymphocytes 16 % (20-55); Nucleated Red Blood Cells 25 (0-5); Platelet Estimate Decreased; Segmented Neutrophils 65 % (50-85); Total Cells Counted 100
[2019-06-17 10:14] LABS: Macrocytosis Slight; Polychromasia Slight
[2019-06-17 10:15] LABS: Hypochromasia Slight
[2019-06-17 10:19] LABS: Bilirubin,Total 18.2 MG/DL (0.2-1.0)
[2019-06-17] MEDS: CHLORHEXIDINE 0.12% ORAL RINSE 60 ML BOTTLE SWISH/SPIT SCH ×2 (11:02→21:57)
[2019-06-17] MEDS: MUPIROCIN 2% OINT 22 GM TUBE TOP SCH ×3 (11:24→23:12)
[2019-06-17] MEDS: MICAFUNGIN 100 MG in SODIUM CHLORIDE 0.9% 100 ML IV SCH (11:29)
[2019-06-17] MEDS ORDERED: HYDROmorphone 2 MG/1 ML VIAL IV ONE (14:06)
[2019-06-17] MEDS: HYDROmorphone 2 MG/1 ML VIAL IV PRN ×2 (17:46→23:07)
[2019-06-17] MEDS: POTASSIUM CHLORIDE RIDER 20 MEQ in PREMIX 1 EACH IV PRN ×2 (17:51→21:00)
[2019-06-17] MEDS: ZOLPIDEM 5 MG TABLET PO SCH (21:57)
[2019-06-18] MEDS: HYDROmorphone 2 MG/1 ML VIAL IV PRN ×5 (01:44→20:45)
[2019-06-18] MEDS: LORazepam 2 MG/1 ML VIAL IV PRN ×3 (01:44→20:30)
[2019-06-18 03:53] LABS: Basophils # 0.1 10*3/uL (0.0-0.2); Basophils % 0.9 % (0.0-0.8); Hematocrit 28.7 VOL% (35.7-47.0); Hemoglobin 9.5 GM/DL (12.0-16.0); Immature Granulocytes % 3.7 %; Immature Granulocytes Absolute 0.38 #; Lymphocytes # 1.4 10*3/uL (1.4-4.0); Lymphocytes % 13.7 % (21.3-54.2); Mean Corpuscular HGB Conc 33.1 GM/DL (32-36); Mean Corpuscular Volume 85.4 FL (87-102); Mean Platelet Volume 11.6 FL (9.6-12.0); NRBC # 0.98 10*3/uL; Neutrophils % 60.7 % (38.7-73.9); Platelet Count 70 T/CUMM (130-400); Red Blood Count 3.36 MC/CUMM (3.8-5.5); Red Cell Distribution Width 21.2 % (9.3-17.3); White Blood Count 10.2 T/CUMM (4-12)
[2019-06-18 04:06] LABS: INR 1.8; PT Patient Result 19.4 SECS (9.6-12.2); Partial Thromboplastin Time 33.2 SECS (20.8-36.0)
[2019-06-18 04:14] LABS: Albumin 1.7 G/DL (3.4-5.0); Calcium 8.3 MG/DL (8.5-10.1); Total Protein 4.8 G/DL (6.4-8.3)
[2019-06-18 04:37] LABS: Band Neutrophils 1 % (0-10); Lymphocytes 13 % (20-55); Nucleated Red Blood Cells 16 (0-5); Segmented Neutrophils 67 % (50-85); Total Cells Counted 100
[2019-06-18 04:38] LABS: Anisocytosis 1+; Hypochromasia 1+
[2019-06-18 04:39] LABS: Macrocytosis 1+; Target Cells Slight
[2019-06-18 04:40] LABS: Platelet Estimate Decreased; Polychromasia Slight
[2019-06-18 05:04] LABS: Bilirubin,Total 17.6 MG/DL (0.2-1.0)
[2019-06-18] MEDS: SODIUM CHLORIDE 0.45% 1,000 ML IV SCH (07:55)
[2019-06-18] MEDS ORDERED: LIDOCAINE 2% VISCOUS 100 ML BOTTLE ONE (09:45)
[2019-06-18] MEDS: LEVOTHYROXINE 100 MCG VIAL IV SCH (10:08)
[2019-06-18] MEDS: PANTOPRAZOLE 40 MG VIAL IV SCH (10:12)
[2019-06-18] MEDS: MUPIROCIN 2% OINT 22 GM TUBE TOP SCH ×3 (10:22→22:40)
[2019-06-18] MEDS: CHLORHEXIDINE 0.12% ORAL RINSE 60 ML BOTTLE SWISH/SPIT SCH ×2 (10:25→22:41)
[2019-06-18] MEDS: NYSTATIN POWDER 15 GM BOTTLE TOP SCH ×3 (10:25→22:40)
[2019-06-18] MEDS: diphenhydrAMINE CAP 25 MG CAPSULE PO PRN (19:25)
[2019-06-18] MEDS: ZOLPIDEM 5 MG TABLET PO SCH (22:40)
[2019-06-19] MEDS: HYDROmorphone 2 MG/1 ML VIAL IV PRN ×5 (03:00→21:33)
[2019-06-19] MEDS: LORazepam 2 MG/1 ML VIAL IV PRN ×2 (03:00→11:33)
[2019-06-19] MEDS: SODIUM CHLORIDE 0.45% 1,000 ML IV SCH ×2 (03:52→23:00)
[2019-06-19 05:19] LABS: Hemoglobin 9.5 GM/DL (12.0-16.0); NRBC # 1.14 10*3/uL; White Blood Count 11.3 T/CUMM (4-12)
[2019-06-19 05:49] LABS: Albumin 1.9 G/DL (3.4-5.0); Calcium 8.2 MG/DL (8.5-10.1); Osmolality,Calculated 293.7 MOS/KG (273-304); Total Protein 4.6 G/DL (6.4-8.3)
[2019-06-19 05:50] LABS: Basophils # 0.1 10*3/uL (0.0-0.2); Basophils % 0.9 % (0.0-0.8); Eosinophils % 0.1 % (0.00-10.9); Immature Granulocytes % 5.5 %; Immature Granulocytes Absolute 0.62 #; Lymphocytes # 1.7 10*3/uL (1.4-4.0); Lymphocytes % 15.1 % (21.3-54.2); Mean Corpuscular HGB Conc 31.7 GM/DL (32-36); Mean Corpuscular Volume 87.5 FL (87-102); Mean Platelet Volume 11.6 FL (9.6-12.0); Monocytes % 21.7 % (1.7-12.7); Neutrophils % 56.7 % (38.7-73.9); Red Blood Count 3.43 MC/CUMM (3.8-5.5)
[2019-06-19 05:55] LABS: Platelet Count 117 T/CUMM (130-400)
[2019-06-19 05:58] LABS: Bilirubin,Total 20.7 MG/DL (0.2-1.0)
[2019-06-19] MEDS: LEVOTHYROXINE 100 MCG VIAL IV SCH (06:30)
[2019-06-19 06:41] LABS: Band Neutrophils 1 % (0-10); Lymphocytes 5 % (20-55); Nucleated Red Blood Cells 14 (0-5); Platelet Estimate Decreased; Segmented Neutrophils 70 % (50-85); Total Cells Counted 100
[2019-06-19 06:42] LABS: Hypochromasia 2+; Macrocytosis Slight
[2019-06-19] MEDS: CHLORHEXIDINE 0.12% ORAL RINSE 60 ML BOTTLE SWISH/SPIT SCH (13:13)
[2019-06-19] MEDS: PANTOPRAZOLE 40 MG TABLET PO SCH (13:13)
[2019-06-19] MEDS: MUPIROCIN 2% OINT 22 GM TUBE TOP SCH ×3 (13:13→21:36)
[2019-06-19] MEDS: NYSTATIN POWDER 15 GM BOTTLE TOP SCH ×2 (13:13→16:31)
[2019-06-19] MEDS ORDERED: ACETAMINOPHEN INJ 1,000 MG in PREMIX 1 EACH IV ONE (20:18)
[2019-06-20] MEDS: LORazepam 2 MG/1 ML VIAL IV PRN ×3 (00:35→11:36)
[2019-06-20] MEDS: HYDROmorphone 2 MG/1 ML VIAL IV PRN ×4 (01:53→19:50)
[2019-06-20] MEDS: CHLORHEXIDINE 0.12% ORAL RINSE 60 ML BOTTLE SWISH/SPIT SCH ×2 (01:59→09:55)
[2019-06-20] MEDS: ZOLPIDEM 5 MG TABLET PO SCH ×2 (01:59→21:08)
[2019-06-20] MEDS: NYSTATIN POWDER 15 GM BOTTLE TOP SCH ×4 (03:07→21:07)
[2019-06-20] MEDS: LEVOTHYROXINE 100 MCG VIAL IV SCH (06:10)
[2019-06-20 06:14] LABS: Basophils % 0.3 % (0.0-0.8); Hematocrit 29.4 VOL% (35.7-47.0); Hemoglobin 9.7 GM/DL (12.0-16.0); Immature Granulocytes % 8.6 %; Lymphocytes # 1.6 10*3/uL (1.4-4.0); Lymphocytes % 13.4 % (21.3-54.2); Mean Platelet Volume 11.1 FL (9.6-12.0); Monocytes % 22.2 % (1.7-12.7); NRBC # 1.19 10*3/uL; Neutrophils % 55.5 % (38.7-73.9); Red Blood Count 3.34 MC/CUMM (3.8-5.5); Red Cell Distribution Width 23.1 % (9.3-17.3); White Blood Count 11.6 T/CUMM (4-12)
[2019-06-20 06:28] LABS: Platelet Count 85 T/CUMM (130-400)
[2019-06-20 06:39] LABS: Band Neutrophils 4 % (0-10); Hypochromasia 1+; Lymphocytes 10 % (20-55); Macrocytosis Slight; Nucleated Red Blood Cells 5 (0-5); Platelet Estimate Decreased; Polychromasia Slight; Segmented Neutrophils 72 % (50-85); Total Cells Counted 100
[2019-06-20 06:44] LABS: Albumin 1.8 G/DL (3.4-5.0); Calcium 8.2 MG/DL (8.5-10.1); Osmolality,Calculated 289.8 MOS/KG (273-304); Total Protein 5.1 G/DL (6.4-8.3)
[2019-06-20 06:45] LABS: Prealbumin 4.6 MG/DL (20-40)
[2019-06-20] MEDS: PANTOPRAZOLE 40 MG TABLET PO SCH (09:55)
[2019-06-20] MEDS ORDERED: SODIUM CHLORIDE 0.9% 500 ML IV ONE (10:24)
[2019-06-20] MEDS: ursodioL 300 MG CAPSULE PO SCH ×2 (13:02→21:07)
[2019-06-20] MEDS: MUPIROCIN 2% OINT 22 GM TUBE TOP SCH ×3 (13:03→21:08)
[2019-06-20] MEDS: SODIUM CHLORIDE 0.45% 1,000 ML IV SCH (17:01)
[2019-06-20] MEDS: ALPRAZolam 0.25 MG TABLET PO PRN (21:07)
[2019-06-21] MEDS: HYDROmorphone 2 MG/1 ML VIAL IV PRN ×5 (00:01→19:38)
[2019-06-21] MEDS: CHLORHEXIDINE 0.12% ORAL RINSE 60 ML BOTTLE SWISH/SPIT SCH ×3 (02:28→20:23)
[2019-06-21] MEDS: LORazepam 2 MG/1 ML VIAL IV PRN (02:30)
[2019-06-21 05:33] LABS: Basophils % 0.2 % (0.0-0.8); Eosinophils % 0.1 % (0.00-10.9); Hematocrit 31.2 VOL% (35.7-47.0); Hemoglobin 10.1 GM/DL (12.0-16.0); Immature Granulocytes % 11.4 %; Immature Granulocytes Absolute 1.57 #; Lymphocytes # 2.3 10*3/uL (1.4-4.0); Lymphocytes % 16.4 % (21.3-54.2); Mean Corpuscular HGB Conc 32.4 GM/DL (32-36); Mean Corpuscular Volume 88.1 FL (87-102); Mean Platelet Volume 11.7 FL (9.6-12.0); Monocytes % 20.6 % (1.7-12.7); NRBC # 1.65 10*3/uL; Neutrophils % 51.3 % (38.7-73.9); Platelet Count 110 T/CUMM (130-400); Red Blood Count 3.54 MC/CUMM (3.8-5.5); Red Cell Distribution Width 24.8 % (9.3-17.3); White Blood Count 13.8 T/CUMM (4-12)
[2019-06-21 05:42] LABS: Partial Thromboplastin Time 35.6 SECS (20.8-36.0)
[2019-06-21 05:47] LABS: INR 2.1
[2019-06-21 05:55] LABS: PT Patient Result 22.7 SECS (9.6-12.2)
[2019-06-21 06:08] LABS: Albumin 1.8 G/DL (3.4-5.0); Calcium 8.6 MG/DL (8.5-10.1); Osmolality,Calculated 289.8 MOS/KG (273-304); Total Protein 4.9 G/DL (6.4-8.3)
[2019-06-21 06:09] LABS: Bilirubin,Total 22.3 MG/DL (0.2-1.0)
[2019-06-21 06:11] LABS: Band Neutrophils 4 % (0-10); Lymphocytes 22 % (20-55); Metamyelocytes 1 %; Myelocytes 2 %; Nucleated Red Blood Cells 13 (0-5); Segmented Neutrophils 49 % (50-85); Total Cells Counted 100
[2019-06-21 06:12] LABS: Anisocytosis 1+; Ovalocytes 1+; Platelet Estimate Adequate; Polychromasia 1+; Target Cells 1+
[2019-06-21 06:14] LABS: Free T4 (Free Thyroxine) 1.66 NG/DL (0.76-1.46); Thyroid Stimulating Hormone 0.077 uIU/ml (0.358-3.74)
[2019-06-21] MEDS: ursodioL 300 MG CAPSULE PO SCH ×3 (09:29→20:22)
[2019-06-21] MEDS: SODIUM CHLORIDE 0.45% 1,000 ML IV SCH (09:29)
[2019-06-21] MEDS: PANTOPRAZOLE 40 MG TABLET PO SCH (09:29)
[2019-06-21] MEDS: NYSTATIN POWDER 15 GM BOTTLE TOP SCH ×4 (09:30→20:23)
[2019-06-21] MEDS: MUPIROCIN 2% OINT 22 GM TUBE TOP SCH ×4 (09:30→20:23)
[2019-06-21] MEDS: ALPRAZolam 0.25 MG TABLET PO PRN ×2 (10:18→19:38)
[2019-06-21] MEDS ORDERED: SODIUM CHLORIDE 0.9% 1,000 ML IV PRN (10:51)
[2019-06-21] MEDS: diphenhydrAMINE CAP 25 MG CAPSULE PO PRN (19:38)
[2019-06-21] MEDS: ZOLPIDEM 5 MG TABLET PO SCH ×2 (19:40→20:22)
[2019-06-21] MEDS ORDERED: ALBUTEROL 1.25 MG/3 ML NEB RESP TX ONE (22:40)
[2019-06-22] MEDS: HYDROmorphone 2 MG/1 ML VIAL IV PRN ×5 (04:45→22:32)
[2019-06-22 05:07] LABS: Basophils % 0.2 % (0.0-0.8); Eosinophils % 0.1 % (0.00-10.9); Hematocrit 28.6 VOL% (35.7-47.0); Hemoglobin 9.3 GM/DL (12.0-16.0); Immature Granulocytes % 11.6 %; Immature Granulocytes Absolute 1.64 #; Lymphocytes # 1.8 10*3/uL (1.4-4.0); Lymphocytes % 12.7 % (21.3-54.2); Mean Corpuscular HGB Conc 32.5 GM/DL (32-36); Mean Corpuscular Volume 89.1 FL (87-102); Mean Platelet Volume 11.7 FL (9.6-12.0); Monocytes % 19.9 % (1.7-12.7); NRBC # 1.64 10*3/uL; Neutrophils % 55.5 % (38.7-73.9); Platelet Count 114 T/CUMM (130-400); Red Blood Count 3.21 MC/CUMM (3.8-5.5); Red Cell Distribution Width 25.1 % (9.3-17.3); White Blood Count 14.1 T/CUMM (4-12)
[2019-06-22 05:37] LABS: Albumin 1.9 G/DL (3.4-5.0); Calcium 8.5 MG/DL (8.5-10.1); Osmolality,Calculated 289.8 MOS/KG (273-304)
[2019-06-22 05:42] LABS: Bilirubin,Total 22.9 MG/DL (0.2-1.0)
[2019-06-22] MEDS: LEVOTHYROXINE 100 MCG VIAL IV SCH (06:20)
[2019-06-22 06:22] LABS: Anisocytosis 1+; Hypochromasia 1+; Lymphocytes 16 % (20-55); Metamyelocytes 2 %; Microcytosis 1+; Myelocytes 1 %; Nucleated Red Blood Cells 15 (0-5); Ovalocytes 1+; Platelet Estimate Decreased; Polychromasia 2+; Segmented Neutrophils 63 % (50-85); Total Cells Counted 100
[2019-06-22] MEDS: ursodioL 300 MG CAPSULE PO SCH ×2 (12:22→20:01)
[2019-06-22] MEDS: CHLORHEXIDINE 0.12% ORAL RINSE 60 ML BOTTLE SWISH/SPIT SCH ×2 (12:22→20:12)
[2019-06-22] MEDS: NYSTATIN POWDER 15 GM BOTTLE TOP SCH ×3 (12:23→20:12)
[2019-06-22] MEDS: MUPIROCIN 2% OINT 22 GM TUBE TOP SCH ×3 (12:23→20:12)
[2019-06-22] MEDS: PANTOPRAZOLE 40 MG TABLET PO SCH (12:23)
[2019-06-22] MEDS: SODIUM CHLORIDE 0.45% 1,000 ML IV SCH (18:40)
[2019-06-22] MEDS: ZOLPIDEM 5 MG TABLET PO SCH ×2 (20:12→22:36)
[2019-06-23] MEDS: HYDROmorphone 2 MG/1 ML VIAL IV PRN ×6 (02:47→20:44)
[2019-06-23] MEDS: LORazepam 2 MG/1 ML VIAL IV PRN (04:22)
[2019-06-23] MEDS: LEVOTHYROXINE 100 MCG VIAL IV SCH (06:15)
[2019-06-23] MEDS: SODIUM CHLORIDE 0.45% 1,000 ML IV SCH ×2 (08:36→23:56)
[2019-06-23] MEDS: NYSTATIN POWDER 15 GM BOTTLE TOP SCH ×3 (08:38→22:54)
[2019-06-23] MEDS: CHLORHEXIDINE 0.12% ORAL RINSE 60 ML BOTTLE SWISH/SPIT SCH ×2 (08:38→22:54)
[2019-06-23] MEDS: PANTOPRAZOLE 40 MG TABLET PO SCH (08:38)
[2019-06-23] MEDS: MUPIROCIN 2% OINT 22 GM TUBE TOP SCH ×3 (08:38→22:54)
[2019-06-23] MEDS: ursodioL 300 MG CAPSULE PO SCH ×2 (08:38→22:54)
[2019-06-23 09:06] LABS: Basophils # 0.1 10*3/uL (0.0-0.2); Basophils % 0.7 % (0.0-0.8); Eosinophils % 0.1 % (0.00-10.9); Hematocrit 31.7 VOL% (35.7-47.0); Hemoglobin 9.8 GM/DL (12.0-16.0); Immature Granulocytes % 8.7 %; Immature Granulocytes Absolute 1.29 #; Lymphocytes % 13.3 % (21.3-54.2); Mean Corpuscular HGB Conc 30.9 GM/DL (32-36); Mean Corpuscular Volume 91.6 FL (87-102); Mean Platelet Volume 11.7 FL (9.6-12.0); Monocytes % 17.4 % (1.7-12.7); Neutrophils % 59.8 % (38.7-73.9); Platelet Count 110 T/CUMM (130-400); Red Blood Count 3.46 MC/CUMM (3.8-5.5); Red Cell Distribution Width 26.9 % (9.3-17.3); White Blood Count 14.8 T/CUMM (4-12)
[2019-06-23] MEDS ORDERED: cefTRIAXone 1,000 MG in SYRINGE 1 EACH IV SCH (09:30)
[2019-06-23] MEDS ORDERED: VANCOMYCIN INJ 1,500 MG in SODIUM CHLORIDE 0.9% 500 ML IV SCH (10:00)
[2019-06-23 10:52] LABS: Albumin 1.8 G/DL (3.4-5.0); Osmolality,Calculated 294.6 MOS/KG (273-304); Total Protein 4.3 G/DL (6.4-8.3)
[2019-06-23 10:53] LABS: Bilirubin,Total 22.2 MG/DL (0.2-1.0)
[2019-06-23 11:12] LABS: Atypical Lymphocytes Few; Band Neutrophils 6 % (0-10); Hypochromasia 2+; Lymphocytes 8 % (20-55); Metamyelocytes 7 %; Microcytosis Slight; Nucleated Red Blood Cells 15 (0-5); Platelet Estimate Adequate; Polychromasia Slight; Schistocytes Slight; Segmented Neutrophils 67 % (50-85); Target Cells Slight; Total Cells Counted 100
[2019-06-24] MEDS: HYDROmorphone 2 MG/1 ML VIAL IV PRN ×6 (02:43→22:05)
[2019-06-24] MEDS: SODIUM CHLORIDE 0.45% 1,000 ML IV SCH (03:30)
[2019-06-24 05:43] LABS: Basophils % 0.1 % (0.0-0.8); Eosinophils % 0.2 % (0.00-10.9); Hemoglobin 9.8 GM/DL (12.0-16.0); Immature Granulocytes % 8.5 %; Immature Granulocytes Absolute 1.39 #; Lymphocytes # 1.7 10*3/uL (1.4-4.0); Lymphocytes % 10.5 % (21.3-54.2); Mean Corpuscular HGB Conc 31.6 GM/DL (32-36); Mean Corpuscular Volume 91.7 FL (87-102); Mean Platelet Volume 11.9 FL (9.6-12.0); Monocytes % 17.1 % (1.7-12.7); NRBC # 1.57 10*3/uL; Neutrophils % 63.6 % (38.7-73.9); Platelet Count 121 T/CUMM (130-400); Red Blood Count 3.38 MC/CUMM (3.8-5.5); Red Cell Distribution Width 27.4 % (9.3-17.3); White Blood Count 16.4 T/CUMM (4-12)
[2019-06-24] MEDS: LEVOTHYROXINE 100 MCG VIAL IV SCH (06:00)
[2019-06-24 06:15] LABS: Anisocytosis 1+; Band Neutrophils 2 % (0-10); Hypochromasia 1+; Lymphocytes 7 % (20-55); Microcytosis 1+; Myelocytes 2 %; Nucleated Red Blood Cells 10 (0-5); Polychromasia Few; Segmented Neutrophils 72 % (50-85); Target Cells Slight; Total Cells Counted 100
[2019-06-24 06:16] LABS: Platelet Estimate Adequate
[2019-06-24] MEDS: NYSTATIN POWDER 15 GM BOTTLE TOP SCH ×3 (11:14→21:29)
[2019-06-24] MEDS: MUPIROCIN 2% OINT 22 GM TUBE TOP SCH ×3 (11:14→21:29)
[2019-06-24] MEDS: CHLORHEXIDINE 0.12% ORAL RINSE 60 ML BOTTLE SWISH/SPIT SCH ×2 (11:19→21:29)
[2019-06-24] MEDS: PANTOPRAZOLE 40 MG VIAL IV SCH (11:19)
[2019-06-24] MEDS: ursodioL 300 MG CAPSULE PO SCH ×2 (11:37→21:29)
[2019-06-24] MEDS: LORazepam 2 MG/1 ML VIAL IV PRN (22:24)
[2019-06-25] MEDS: HYDROmorphone 2 MG/1 ML VIAL IV PRN ×7 (00:58→23:10)
[2019-06-25] MEDS: LORazepam 2 MG/1 ML VIAL IV PRN ×3 (02:59→18:35)
[2019-06-25 05:41] LABS: INR 2.4; Partial Thromboplastin Time 39.5 SECS (20.8-36.0)
[2019-06-25 05:58] LABS: Albumin 1.5 G/DL (3.4-5.0); Calcium 8.2 MG/DL (8.5-10.1); Osmolality,Calculated 292.8 MOS/KG (273-304); Total Protein 4.4 G/DL (6.4-8.3)
[2019-06-25 06:01] LABS: Bilirubin,Total 22.6 MG/DL (0.2-1.0)
[2019-06-25] MEDS: LEVOTHYROXINE 100 MCG VIAL IV SCH (06:05)
[2019-06-25] MEDS: SODIUM CHLORIDE 0.45% 1,000 ML IV SCH (06:05)
[2019-06-25 06:19] LABS: PT Patient Result 25.1 SECS (9.6-12.2)
[2019-06-25 08:12] LABS: Basophils # 0.1 10*3/uL (0.0-0.2); Basophils % 0.8 % (0.0-0.8); Eosinophils # 0.1 10*3/uL (0.0-0.87); Eosinophils % 0.3 % (0.00-10.9); Hematocrit 29.7 VOL% (35.7-47.0); Hemoglobin 9.4 GM/DL (12.0-16.0); Immature Granulocytes % 8.5 %; Immature Granulocytes Absolute 1.25 #; Lymphocytes # 1.4 10*3/uL (1.4-4.0); Lymphocytes % 9.8 % (21.3-54.2); Mean Corpuscular HGB Conc 31.6 GM/DL (32-36); Mean Platelet Volume 11.6 FL (9.6-12.0); Monocytes % 15.2 % (1.7-12.7); Neutrophils % 65.4 % (38.7-73.9); Platelet Count 120 T/CUMM (130-400); Red Blood Count 3.16 MC/CUMM (3.8-5.5); Red Cell Distribution Width 28.4 % (9.3-17.3); White Blood Count 14.7 T/CUMM (4-12)
[2019-06-25 08:37] LABS: Anisocytosis 2+; Band Neutrophils 10 % (0-10); Lymphocytes 7 % (20-55); Metamyelocytes 1 %; Myelocytes 5 %; Nucleated Red Blood Cells 13 (0-5); Platelet Estimate Adequate; Polychromasia Slight; Segmented Neutrophils 65 % (50-85); Total Cells Counted 100
[2019-06-25 08:38] LABS: Macrocytosis 2+; Smudge Cells Few
[2019-06-25] MEDS ORDERED: SODIUM CHLORIDE 0.9% 1,000 ML IV PRN (08:50)
[2019-06-25] MEDS: CHLORHEXIDINE 0.12% ORAL RINSE 60 ML BOTTLE SWISH/SPIT SCH ×2 (09:03→21:47)
[2019-06-25] MEDS: PANTOPRAZOLE 40 MG VIAL IV SCH (09:04)
[2019-06-25] MEDS: NYSTATIN POWDER 15 GM BOTTLE TOP SCH ×3 (09:05→20:45)
[2019-06-25] MEDS: ursodioL 300 MG CAPSULE PO SCH ×2 (09:05→20:45)
[2019-06-25] MEDS: MUPIROCIN 2% OINT 22 GM TUBE TOP SCH ×3 (09:05→20:45)
[2019-06-25] MEDS: POLYETHYLENE GLYCOL POWDER 17 GM PACK PO SCH (16:56)
[2019-06-26] MEDS: HYDROmorphone 2 MG/1 ML VIAL IV PRN ×4 (04:23→21:24)
[2019-06-26 06:11] LABS: Basophils # 0.1 10*3/uL (0.0-0.2); Basophils % 0.8 % (0.0-0.8); Eosinophils # 0.1 10*3/uL (0.0-0.87); Eosinophils % 0.7 % (0.00-10.9); Hematocrit 26.5 VOL% (35.7-47.0); Hemoglobin 8.7 GM/DL (12.0-16.0); Immature Granulocytes % 7.9 %; Immature Granulocytes Absolute 1.15 #; Lymphocytes # 1.5 10*3/uL (1.4-4.0); Lymphocytes % 10.5 % (21.3-54.2); Mean Corpuscular HGB Conc 32.8 GM/DL (32-36); Mean Corpuscular Volume 91.4 FL (87-102); Mean Platelet Volume 12.6 FL (9.6-12.0); Monocytes % 16.6 % (1.7-12.7); NRBC # 0.88 10*3/uL; Neutrophils % 63.5 % (38.7-73.9); Platelet Count 107 T/CUMM (130-400); Red Cell Distribution Width 28.8 % (9.3-17.3); White Blood Count 14.6 T/CUMM (4-12)
[2019-06-26] MEDS: LEVOTHYROXINE 100 MCG VIAL IV SCH (06:24)
[2019-06-26 06:42] LABS: Albumin 1.9 G/DL (3.4-5.0); Calcium 8.5 MG/DL (8.5-10.1); Osmolality,Calculated 291.8 MOS/KG (273-304)
[2019-06-26 06:48] LABS: Band Neutrophils 1 % (0-10); Bilirubin,Total 24.7 MG/DL (0.2-1.0); Hypochromasia 1+; Lymphocytes 9 % (20-55); Macrocytosis Slight; Nucleated Red Blood Cells 12 (0-5); Platelet Estimate Decreased; Polychromasia Slight; Segmented Neutrophils 77 % (50-85); Total Cells Counted 100
[2019-06-26 06:49] LABS: Albumin 1.9 G/DL (3.4-5.0); Bilirubin,Direct 19.72 MG/DL (0.0-0.20)
[2019-06-26 06:51] LABS: Bilirubin,Indirect 5.2 MG/DL (0.0-1.0); Bilirubin,Total 24.9 MG/DL (0.2-1.0)
[2019-06-26] MEDS: ursodioL 300 MG CAPSULE PO SCH ×2 (10:31→21:07)
[2019-06-26] MEDS: PANTOPRAZOLE 40 MG VIAL IV SCH (10:31)
[2019-06-26] MEDS: POTASSIUM CHLORIDE 20 MEQ/15 ML UDCUP PER TUBE PRN (10:31)
[2019-06-26] MEDS: NYSTATIN POWDER 15 GM BOTTLE TOP SCH ×3 (10:32→22:25)
[2019-06-26] MEDS: SODIUM CHLORIDE 0.45% 1,000 ML IV SCH (10:32)
[2019-06-26] MEDS: POLYETHYLENE GLYCOL POWDER 17 GM PACK PO SCH (10:32)
[2019-06-26] MEDS: CHLORHEXIDINE 0.12% ORAL RINSE 60 ML BOTTLE SWISH/SPIT SCH ×2 (10:33→21:18)
[2019-06-26] MEDS: MUPIROCIN 2% OINT 22 GM TUBE TOP SCH ×3 (10:33→21:17)
[2019-06-26] MEDS: TOBRAMYCIN/DEXAMETHASONE 0.3%-0.1% OPH SUSP 2.5 ML BOTTLE BOTH EYES SCH ×3 (14:02→21:08)
[2019-06-26] MEDS: ZINC OXIDE 20% OINT 28.35 GM TUBE TOP SCH ×3 (14:02→21:18)
[2019-06-27] MEDS: HYDROmorphone 2 MG/1 ML VIAL IV PRN ×4 (02:39→14:55)
[2019-06-27] MEDS: LORazepam 2 MG/1 ML VIAL IV PRN (02:45)
[2019-06-27] MEDS: SODIUM CHLORIDE 0.45% 1,000 ML IV SCH (02:49)
[2019-06-27] MEDS: ZINC OXIDE 20% OINT 28.35 GM TUBE TOP SCH ×6 (03:01→21:18)
[2019-06-27] MEDS: TOBRAMYCIN/DEXAMETHASONE 0.3%-0.1% OPH SUSP 2.5 ML BOTTLE BOTH EYES SCH ×6 (03:01→21:11)
[2019-06-27] MEDS: LEVOTHYROXINE 100 MCG VIAL IV SCH (06:04)
[2019-06-27 07:08] LABS: Basophils # 0.1 10*3/uL (0.0-0.2); Basophils % 0.6 % (0.0-0.8); Eosinophils # 0.1 10*3/uL (0.0-0.87); Eosinophils % 0.3 % (0.00-10.9); Hematocrit 28.9 VOL% (35.7-47.0); Hemoglobin 9.4 GM/DL (12.0-16.0); Immature Granulocytes % 8.2 %; Immature Granulocytes Absolute 1.35 #; Lymphocytes # 1.8 10*3/uL (1.4-4.0); Lymphocytes % 10.6 % (21.3-54.2); Mean Corpuscular HGB Conc 32.5 GM/DL (32-36); Mean Corpuscular Volume 92.3 FL (87-102); Mean Platelet Volume 12.2 FL (9.6-12.0); Monocytes % 15.7 % (1.7-12.7); NRBC # 0.78 10*3/uL; Neutrophils % 64.6 % (38.7-73.9); Platelet Count 113 T/CUMM (130-400); Red Blood Count 3.13 MC/CUMM (3.8-5.5); Red Cell Distribution Width 29.8 % (9.3-17.3); White Blood Count 16.5 T/CUMM (4-12)
[2019-06-27 07:26] LABS: Band Neutrophils 2 % (0-10); Lymphocytes 11 % (20-55); Nucleated Red Blood Cells 5 (0-5); Platelet Estimate Decreased; Segmented Neutrophils 67 % (50-85); Total Cells Counted 100
[2019-06-27 07:27] LABS: Hypochromasia 1+; Macrocytosis Slight; Polychromasia Slight; Target Cells Few
[2019-06-27 07:55] LABS: Albumin 1.8 G/DL (3.4-5.0); Bilirubin,Direct 20.12 MG/DL (0.0-0.20); Bilirubin,Indirect 4.8 MG/DL (0.0-1.0); Total Protein 4.5 G/DL (6.4-8.3)
[2019-06-27 07:56] LABS: Albumin 1.8 G/DL (3.4-5.0); Calcium 8.2 MG/DL (8.5-10.1); Osmolality,Calculated 290.8 MOS/KG (273-304); Total Protein 4.5 G/DL (6.4-8.3)
[2019-06-27] MEDS: CHLORHEXIDINE 0.12% ORAL RINSE 60 ML BOTTLE SWISH/SPIT SCH ×2 (08:01→21:18)
[2019-06-27 08:02] LABS: Bilirubin,Total 24.9 MG/DL (0.2-1.0)
[2019-06-27 08:04] LABS: Bilirubin,Total 24.9 MG/DL (0.2-1.0)
[2019-06-27] MEDS: NYSTATIN POWDER 15 GM BOTTLE TOP SCH ×3 (09:10→21:18)
[2019-06-27] MEDS: PANTOPRAZOLE 40 MG VIAL IV SCH (09:10)
[2019-06-27] MEDS: POLYETHYLENE GLYCOL POWDER 17 GM PACK PO SCH (09:11)
[2019-06-27] MEDS: POTASSIUM CHLORIDE 20 MEQ/15 ML UDCUP PER TUBE PRN (09:11)
[2019-06-27] MEDS: MUPIROCIN 2% OINT 22 GM TUBE TOP SCH ×3 (09:11→21:19)
[2019-06-27] MEDS: ursodioL 300 MG CAPSULE PO SCH ×2 (09:12→21:10)
[2019-06-27] MEDS ORDERED: HYDROmorphone 2 MG/1 ML VIAL IV PRN (18:49)
[2019-06-27] MEDS ORDERED: LORazepam 2 MG/1 ML VIAL IM PRN (20:33)
[2019-06-28] MEDS: HYDROmorphone 2 MG/1 ML VIAL IM PRN ×2 (00:33→05:35)
[2019-06-28] MEDS: ZINC OXIDE 20% OINT 28.35 GM TUBE TOP SCH ×6 (02:09→21:19)
[2019-06-28] MEDS: TOBRAMYCIN/DEXAMETHASONE 0.3%-0.1% OPH SUSP 2.5 ML BOTTLE BOTH EYES SCH ×6 (02:09→21:19)
[2019-06-28] MEDS: LEVOTHYROXINE 100 MCG VIAL IV SCH (06:18)
[2019-06-28] MEDS ORDERED: SODIUM CHLORIDE 0.45% 500 ML IV ONE (11:02)
[2019-06-28] MEDS: HYDROmorphone 2 MG/1 ML VIAL IV PRN ×3 (11:09→20:18)
[2019-06-28] MEDS: NYSTATIN POWDER 15 GM BOTTLE TOP SCH ×3 (11:19→20:35)
[2019-06-28] MEDS: MUPIROCIN 2% OINT 22 GM TUBE TOP SCH ×3 (11:21→20:35)
[2019-06-28] MEDS: PANTOPRAZOLE 40 MG VIAL IV SCH (11:21)
[2019-06-28] MEDS: ursodioL 300 MG CAPSULE PO SCH ×2 (11:22→20:18)
[2019-06-28] MEDS: POLYETHYLENE GLYCOL POWDER 17 GM PACK PO SCH (11:23)
[2019-06-28] MEDS: CHLORHEXIDINE 0.12% ORAL RINSE 60 ML BOTTLE SWISH/SPIT SCH ×2 (11:23→20:36)
[2019-06-28] MEDS: SODIUM CHLORIDE 0.45% 1,000 ML IV SCH (12:16)
[2019-06-28] MEDS: diphenhydrAMINE CAP 25 MG CAPSULE PO PRN (20:18)
[2019-06-28] MEDS: ALPRAZolam 0.25 MG TABLET PO PRN (20:18)
[2019-06-29] MEDS: HYDROmorphone 2 MG/1 ML VIAL IV PRN ×4 (00:02→21:27)
[2019-06-29] MEDS: TOBRAMYCIN/DEXAMETHASONE 0.3%-0.1% OPH SUSP 2.5 ML BOTTLE BOTH EYES SCH ×6 (02:15→21:14)
[2019-06-29] MEDS: ZINC OXIDE 20% OINT 28.35 GM TUBE TOP SCH ×6 (02:15→21:13)
[2019-06-29 05:10] LABS: Albumin 1.5 G/DL (3.4-5.0); Calcium 8.7 MG/DL (8.5-10.1); Osmolality,Calculated 295.7 MOS/KG (273-304); Total Protein 4.5 G/DL (6.4-8.3)
[2019-06-29 05:11] LABS: Basophils # 0.1 10*3/uL (0.0-0.2); Basophils % 0.5 % (0.0-0.8); Eosinophils # 0.1 10*3/uL (0.0-0.87); Eosinophils % 0.3 % (0.00-10.9); Hematocrit 28.6 VOL% (35.7-47.0); Hemoglobin 9.3 GM/DL (12.0-16.0); Immature Granulocytes % 5.3 %; Immature Granulocytes Absolute 0.88 #; Lymphocytes # 1.3 10*3/uL (1.4-4.0); Lymphocytes % 7.8 % (21.3-54.2); Mean Corpuscular HGB Conc 32.5 GM/DL (32-36); Mean Corpuscular Volume 92.3 FL (87-102); Mean Platelet Volume 11.6 FL (9.6-12.0); Monocytes % 15.6 % (1.7-12.7); NRBC # 0.72 10*3/uL; Neutrophils % 70.5 % (38.7-73.9); Platelet Count 129 T/CUMM (130-400); Red Cell Distribution Width 31.5 % (9.3-17.3); White Blood Count 16.5 T/CUMM (4-12)
[2019-06-29 05:14] LABS: Bilirubin,Total 23.1 MG/DL (0.2-1.0)
[2019-06-29] MEDS: HYDROmorphone 2 MG/1 ML VIAL IM PRN (05:23)
[2019-06-29 06:29] LABS: Band Neutrophils 2 % (0-10); Eosinophils 1 % (0-10); Hypochromasia 2+; Lymphocytes 3 % (20-55); Macrocytosis Slight; Nucleated Red Blood Cells 7 (0-5); Platelet Estimate Adequate; Polychromasia Slight; Segmented Neutrophils 81 % (50-85); Total Cells Counted 100
[2019-06-29] MEDS: ursodioL 300 MG CAPSULE PO SCH ×2 (10:00→21:19)
[2019-06-29] MEDS: LEVOTHYROXINE 100 MCG VIAL IV SCH (10:00)
[2019-06-29] MEDS: POLYETHYLENE GLYCOL POWDER 17 GM PACK PO SCH (10:00)
[2019-06-29] MEDS: CHLORHEXIDINE 0.12% ORAL RINSE 60 ML BOTTLE SWISH/SPIT SCH (10:01)
[2019-06-29] MEDS: PANTOPRAZOLE 40 MG VIAL IV SCH (10:01)
[2019-06-29] MEDS: MUPIROCIN 2% OINT 22 GM TUBE TOP SCH ×3 (10:01→14:39)
[2019-06-29] MEDS: NYSTATIN POWDER 15 GM BOTTLE TOP SCH ×2 (10:01→14:39)
[2019-06-29] MEDS: LORazepam 2 MG/1 ML VIAL IV PRN ×2 (13:39→18:40)
[2019-06-29] MEDS: SODIUM CHLORIDE 0.45% 1,000 ML IV SCH (18:43)
[2019-06-29] MEDS: ALPRAZolam 0.25 MG TABLET PO PRN (21:27)
[2019-06-30] MEDS: HYDROmorphone 2 MG/1 ML VIAL IV PRN ×2 (00:16→13:47)
[2019-06-30] MEDS: LORazepam 2 MG/1 ML VIAL IV PRN ×2 (00:18→13:47)
[2019-06-30] MEDS: MUPIROCIN 2% OINT 22 GM TUBE TOP SCH ×3 (01:57→15:15)
[2019-06-30] MEDS: NYSTATIN POWDER 15 GM BOTTLE TOP SCH ×4 (01:57→21:15)
[2019-06-30] MEDS: CHLORHEXIDINE 0.12% ORAL RINSE 60 ML BOTTLE SWISH/SPIT SCH ×2 (01:57→09:05)
[2019-06-30] MEDS: TOBRAMYCIN/DEXAMETHASONE 0.3%-0.1% OPH SUSP 2.5 ML BOTTLE BOTH EYES SCH ×6 (04:20→22:55)
[2019-06-30] MEDS: ZINC OXIDE 20% OINT 28.35 GM TUBE TOP SCH ×6 (04:21→22:55)
[2019-06-30 05:03] LABS: INR 2.2; PT Patient Result 22.6 SECS (9.8-11.9); Partial Thromboplastin Time 38.1 SECS (23.9-33.8)
[2019-06-30] MEDS: LEVOTHYROXINE 100 MCG VIAL IV SCH (06:17)
[2019-06-30] MEDS: POLYETHYLENE GLYCOL POWDER 17 GM PACK PO SCH (09:04)
[2019-06-30] MEDS: ursodioL 300 MG CAPSULE PO SCH ×2 (09:04→21:04)
[2019-06-30] MEDS: PANTOPRAZOLE 40 MG VIAL IV SCH (09:05)
[2019-06-30] MEDS ORDERED: SODIUM CHLORIDE 0.9% 1,000 ML IV PRN (11:49)
[2019-06-30] MEDS ORDERED: ALBUTEROL/IPRATROPIUM 3 ML NEB RESP TX PRN (11:58)
[2019-06-30] MEDS ORDERED: NOREPINEPHRINE 4 MG/4 ML VIAL IV ONE (19:13)
[2019-06-30] MEDS ORDERED: EPINEPHrine 1 MG/ML VIAL ONE (19:13)
[2019-06-30] MEDS ORDERED: ROCURONIUM 100 MG/10 ML VIAL IV ONE (19:13)
[2019-06-30] MEDS: NOREPINEPHRINE 8 MG in SODIUM CHLORIDE 0.9% 242 ML IV PRN (19:15)
[2019-06-30 19:19] LABS: Allen Test Positive
[2019-06-30 19:20] LABS: ABG HCO3 25.3 MMOL/L (20-26); ABG Oxygen Saturation 99.5 % (95-100); ABG PCO2 63.1 MM HG (35-48); ABG PH 7.273 (7.35-7.45); ABG TCO2 26.9 MMOL/L (23-27)
[2019-06-30] MEDS ORDERED: VANCOMYCIN INJ 2,500 MG in SODIUM CHLORIDE 0.9% 500 ML IV ONE (21:00)
[2019-06-30 21:04] LABS: Basophils # 0.1 10*3/uL (0.0-0.2); Basophils % 0.3 % (0.0-0.8); Eosinophils % 0.1 % (0.00-10.9); Hemoglobin 9.9 GM/DL (12.0-16.0); Immature Granulocytes Absolute 0.72 #; Lymphocytes % 4.1 % (21.3-54.2); Mean Corpuscular HGB Conc 30.9 GM/DL (32-36); Mean Platelet Volume 11.9 FL (9.6-12.0); Monocytes % 11.9 % (1.7-12.7); NRBC # 1.51 10*3/uL; Neutrophils % 80.6 % (38.7-73.9); Platelet Count 205 T/CUMM (130-400); Red Blood Count 3.37 MC/CUMM (3.8-5.5); Red Cell Distribution Width 33.6 % (9.3-17.3)
[2019-06-30] MEDS: fentaNYL INJ 1,250 MCG in SODIUM CHLORIDE 0.9% 225 ML IV PRN (21:14)
[2019-06-30 21:15] LABS: INR 2.6; Partial Thromboplastin Time 37.9 SECS (23.9-33.8)
[2019-06-30 21:17] LABS: Troponin I 0.022 NG/ML (0.00-0.045)
[2019-06-30 21:19] LABS: PT Patient Result 26.6 SECS (9.8-11.9)
[2019-06-30 21:22] LABS: Albumin 1.7 G/DL (3.4-5.0); Bilirubin,Direct 19.18 MG/DL (0.0-0.20); Calcium 8.6 MG/DL (8.5-10.1); Osmolality,Calculated 304.6 MOS/KG (273-304); Total Protein 4.7 G/DL (6.4-8.3)
[2019-06-30 21:23] LABS: Anisocytosis 1+; Band Neutrophils 5 % (0-10); Hypochromasia 1+; Lymphocytes 7 % (20-55); Nucleated Red Blood Cells 9 (0-5); Segmented Neutrophils 76 % (50-85); Total Cells Counted 100
[2019-06-30 21:24] LABS: Burr Cells Few; Polychromasia Few; Schistocytes Few; Target Cells Few
[2019-06-30 21:25] LABS: Platelet Estimate Adequate
[2019-06-30 21:27] LABS: Bilirubin,Indirect 5.2 MG/DL (0.0-1.0); Bilirubin,Total 24.4 MG/DL (0.2-1.0)
[2019-07-01] MEDS: LACTULOSE 20 GM/30 ML UDCUP PO SCH ×4 (00:07→18:07)
[2019-07-01] MEDS: MEROPENEM 500 MG in SODIUM CHLORIDE 0.9% 100 ML IV SCH ×4 (00:07→18:07)
[2019-07-01] MEDS: TOBRAMYCIN/DEXAMETHASONE 0.3%-0.1% OPH SUSP 2.5 ML BOTTLE BOTH EYES SCH ×6 (02:49→23:20)
[2019-07-01] MEDS: ZINC OXIDE 20% OINT 28.35 GM TUBE TOP SCH ×6 (02:50→23:20)
[2019-07-01] MEDS: NOREPINEPHRINE 8 MG in SODIUM CHLORIDE 0.9% 242 ML IV PRN ×2 (04:00→22:29)
[2019-07-01 04:15] LABS: Allen Test Positive; Pt O2 Delivery Device Ventilator
[2019-07-01 04:18] LABS: ABG Base Excess -0.6 MMOL/L (-2.5-2.5); ABG HCO3 23.7 MMOL/L (20-26); ABG Oxygen Saturation 93.7 % (95-100); ABG PCO2 37.3 MM HG (35-48); ABG PO2 70.4 MM HG (80-95); ABG TCO2 24.8 MMOL/L (23-27)
[2019-07-01 06:38] LABS: Basophils # 0.2 10*3/uL (0.0-0.2); Basophils % 0.5 % (0.0-0.8); Hematocrit 28.5 VOL% (35.7-47.0); Hemoglobin 9.4 GM/DL (12.0-16.0); Immature Granulocytes % 2.9 %; Immature Granulocytes Absolute 0.93 #; Lymphocytes # 2.1 10*3/uL (1.4-4.0); Lymphocytes % 6.4 % (21.3-54.2); Mean Corpuscular Volume 92.5 FL (87-102); Mean Platelet Volume 12.4 FL (9.6-12.0); Monocytes % 11.9 % (1.7-12.7); NRBC # 2.22 10*3/uL; Neutrophils % 78.3 % (38.7-73.9); Platelet Count 206 T/CUMM (130-400); Red Blood Count 3.08 MC/CUMM (3.8-5.5); Red Cell Distribution Width 33.2 % (9.3-17.3); White Blood Count 32.2 T/CUMM (4-12)
[2019-07-01 06:46] LABS: Albumin 1.5 G/DL (3.4-5.0); Calcium 8.7 MG/DL (8.5-10.1); Osmolality,Calculated 306.6 MOS/KG (273-304); Total Protein 4.4 G/DL (6.4-8.3)
[2019-07-01 06:49] LABS: Bilirubin,Total 24.2 MG/DL (0.2-1.0)
[2019-07-01 06:50] LABS: INR 2.9; PT Patient Result 29.3 SECS (9.8-11.9)
[2019-07-01 07:11] LABS: Band Neutrophils 16 % (0-10); Lymphocytes 4 % (20-55); Metamyelocytes 2 %; Myelocytes 2 %; Nucleated Red Blood Cells 12 (0-5); Platelet Estimate Normal; Segmented Neutrophils 66 % (50-85); Total Cells Counted 100
[2019-07-01 07:12] LABS: Anisocytosis 2+; Macrocytosis 1+; Polychromasia 1+
[2019-07-01] MEDS ORDERED: VANCOMYCIN INJ 1,500 MG in SODIUM CHLORIDE 0.9% 500 ML IV SCH (09:00)
[2019-07-01] MEDS: LEVOTHYROXINE 100 MCG VIAL IV SCH (09:16)
[2019-07-01] MEDS: PANTOPRAZOLE 40 MG VIAL IV SCH (09:16)
[2019-07-01] MEDS: ursodioL 300 MG CAPSULE PO SCH ×2 (09:19→21:18)
[2019-07-01] MEDS: NYSTATIN POWDER 15 GM BOTTLE TOP SCH ×3 (09:20→21:17)
[2019-07-01] MEDS: MUPIROCIN 2% OINT 22 GM TUBE TOP SCH (18:02)
[2019-07-01 19:38] VITALS: BP 103/46
[2019-07-02] MEDS: fentaNYL INJ 1,250 MCG in SODIUM CHLORIDE 0.9% 225 ML IV PRN ×4 (00:30→22:05)
[2019-07-02] MEDS: LACTULOSE 20 GM/30 ML UDCUP PO SCH ×4 (00:59→17:36)
[2019-07-02] MEDS: MEROPENEM 500 MG in SODIUM CHLORIDE 0.9% 100 ML IV SCH ×3 (00:59→17:32)
[2019-07-02] MEDS: TOBRAMYCIN/DEXAMETHASONE 0.3%-0.1% OPH SUSP 2.5 ML BOTTLE BOTH EYES SCH ×6 (02:12→23:36)
[2019-07-02] MEDS: ZINC OXIDE 20% OINT 28.35 GM TUBE TOP SCH ×6 (02:12→23:36)
[2019-07-02 04:04] LABS: ABG Base Excess 0.8 MMOL/L (-2.5-2.5); ABG HCO3 24.6 MMOL/L (20-26); ABG Oxygen Saturation 93.5 % (95-100); ABG PCO2 36.1 MM HG (35-48); ABG PH 7.451 (7.35-7.45); ABG PO2 72.4 MM HG (80-95); ABG TCO2 25.7 MMOL/L (23-27); Allen Test Positive; Pt O2 Delivery Device Ventilator
[2019-07-02] MEDS: NOREPINEPHRINE 8 MG in SODIUM CHLORIDE 0.9% 242 ML IV PRN ×3 (05:10→19:47)
[2019-07-02 05:26] LABS: Basophils # 0.2 10*3/uL (0.0-0.2); Basophils % 0.5 % (0.0-0.8); Eosinophils # 0.1 10*3/uL (0.0-0.87); Eosinophils % 0.2 % (0.00-10.9); Hematocrit 28.4 VOL% (35.7-47.0); Hemoglobin 9.6 GM/DL (12.0-16.0); Immature Granulocytes % 3.6 %; Immature Granulocytes Absolute 1.17 #; Lymphocytes # 2.3 10*3/uL (1.4-4.0); Lymphocytes % 6.9 % (21.3-54.2); Mean Corpuscular HGB Conc 33.8 GM/DL (32-36); Mean Corpuscular Volume 92.5 FL (87-102); Mean Platelet Volume 12.5 FL (9.6-12.0); Monocytes % 11.1 % (1.7-12.7); NRBC # 1.63 10*3/uL; Neutrophils % 77.7 % (38.7-73.9); Platelet Count 179 T/CUMM (130-400); Red Blood Count 3.07 MC/CUMM (3.8-5.5); Red Cell Distribution Width 33.6 % (9.3-17.3); White Blood Count 32.9 T/CUMM (4-12)
[2019-07-02 05:47] LABS: Band Neutrophils 3 % (0-10); Hypochromasia 1+; Lymphocytes 5 % (20-55); Macrocytosis Slight; Nucleated Red Blood Cells 3 (0-5); Platelet Estimate Adequate; Polychromasia Slight; Segmented Neutrophils 85 % (50-85); Total Cells Counted 100
[2019-07-02 05:54] LABS: Albumin 1.4 G/DL (3.4-5.0); Calcium 8.6 MG/DL (8.5-10.1); Osmolality,Calculated 309.6 MOS/KG (273-304); Total Protein 4.5 G/DL (6.4-8.3)
[2019-07-02 06:01] LABS: Bilirubin,Total 22.3 MG/DL (0.2-1.0)
[2019-07-02 07:59] LABS: INR 3.1
[2019-07-02 08:03] LABS: PT Patient Result 30.9 SECS (9.8-11.9)
[2019-07-02] MEDS: POTASSIUM CHLORIDE RIDER 10 MEQ in PREMIX 1 EACH IV PRN ×3 (08:06→11:56)
[2019-07-02] MEDS: LEVOTHYROXINE 100 MCG TABLET PER TUBE SCH (08:10)
[2019-07-02] MEDS: ursodioL 300 MG CAPSULE PO SCH ×2 (09:09→21:23)
[2019-07-02] MEDS: OMEPRAZOLE ODT 20 MG TABLET PER TUBE SCH (09:09)
[2019-07-02] MEDS: NYSTATIN POWDER 15 GM BOTTLE TOP SCH ×3 (10:26→21:23)
[2019-07-02] MEDS: MUPIROCIN 2% OINT 22 GM TUBE TOP SCH (10:26)
[2019-07-03] MEDS: LACTULOSE 20 GM/30 ML UDCUP PO SCH ×3 (01:16→12:31)
[2019-07-03] MEDS: TOBRAMYCIN/DEXAMETHASONE 0.3%-0.1% OPH SUSP 2.5 ML BOTTLE BOTH EYES SCH ×4 (03:21→16:06)
[2019-07-03] MEDS: ZINC OXIDE 20% OINT 28.35 GM TUBE TOP SCH ×4 (03:21→16:06)
[2019-07-03] MEDS: NOREPINEPHRINE 8 MG in SODIUM CHLORIDE 0.9% 242 ML IV PRN (04:00)
[2019-07-03] MEDS: fentaNYL INJ 1,250 MCG in SODIUM CHLORIDE 0.9% 225 ML IV PRN ×3 (04:00→13:48)
[2019-07-03 04:44] LABS: Allen Test Positive; Pt O2 Delivery Device Ventilator
[2019-07-03 04:45] LABS: ABG Base Excess -1.4 MMOL/L (-2.5-2.5); ABG HCO3 23.1 MMOL/L (20-26); ABG Oxygen Saturation 91.7 % (95-100); ABG PCO2 35.4 MM HG (35-48); ABG PH 7.415 (7.35-7.45); ABG PO2 68.6 MM HG (80-95); ABG TCO2 20.8 MMOL/L (23-27)
[2019-07-03 06:03] LABS: Basophils % 0.1 % (0.0-0.8); Eosinophils # 0.1 10*3/uL (0.0-0.87); Eosinophils % 0.3 % (0.00-10.9); Hemoglobin 9.6 GM/DL (12.0-16.0); Immature Granulocytes % 5.7 %; Immature Granulocytes Absolute 2.15 #; Lymphocytes # 1.8 10*3/uL (1.4-4.0); Lymphocytes % 4.7 % (21.3-54.2); Mean Corpuscular HGB Conc 35.6 GM/DL (32-36); Mean Corpuscular Volume 90.9 FL (87-102); Mean Platelet Volume 11.8 FL (9.6-12.0); Monocytes % 11.2 % (1.7-12.7); NRBC # 2.65 10*3/uL; Platelet Count 177 T/CUMM (130-400); Red Blood Count 2.97 MC/CUMM (3.8-5.5); Red Cell Distribution Width 33.5 % (9.3-17.3); White Blood Count 37.9 T/CUMM (4-12)
[2019-07-03] MEDS: MEROPENEM 500 MG in SODIUM CHLORIDE 0.9% 100 ML IV SCH (06:11)
[2019-07-03] MEDS: LEVOTHYROXINE 100 MCG TABLET PER TUBE SCH (06:21)
[2019-07-03 06:28] LABS: Band Neutrophils 3 % (0-10); Hypochromasia Slight; Lymphocytes 8 % (20-55); Metamyelocytes 1 %; Myelocytes 1 %; Nucleated Red Blood Cells 13 (0-5); Polychromasia Slight; Promyelocytes 1 %; Segmented Neutrophils 80 % (50-85); Total Cells Counted 100
[2019-07-03 06:29] LABS: Macrocytosis 1+
[2019-07-03 06:38] LABS: Albumin 1.2 G/DL (3.4-5.0); Calcium 7.8 MG/DL (8.5-10.1); Osmolality,Calculated 311.6 MOS/KG (273-304)
[2019-07-03 06:49] LABS: Total Protein 4.3 G/DL (6.4-8.3)
[2019-07-03 06:52] LABS: Bilirubin,Total 20.2 MG/DL (0.2-1.0)
[2019-07-03] MEDS: ursodioL 300 MG CAPSULE PO SCH (09:09)
[2019-07-03] MEDS: OMEPRAZOLE ODT 20 MG TABLET PER TUBE SCH (09:09)
[2019-07-03] MEDS: MUPIROCIN 2% OINT 22 GM TUBE TOP SCH (09:10)
[2019-07-03] MEDS: NYSTATIN POWDER 15 GM BOTTLE TOP SCH ×2 (09:10→16:07)
== END 2019-07-03 14:39 | disposition expired | DRG 871 ==
LOC: N.ED 11:59 → N.EDINP 14:46 → SUATTDRO 14:46 → N.4E 15:16 → N.TELES 06-21 14:48 → N.ICU 06-30 19:18 → N.CVR 07-01 18:41
PROVIDERS: ADMIT Internal Medicine; ATTEND Internal Medicine